=== PATIENT | male | born 1950 | race Caucasian/White ===

== ENCOUNTER → 2016-10-06 | Outpatient (CLI) | payer MEDICARE, BC ==
[2016-10-06 18:36] LABS: Basophils # (A) 0.1 k/uL (0-0.2); Basophils % (A) 1 %; CH 30.9; CHCM 33.7; Eosinophils # (A) 0.2 k/uL (0-0.7); Eosinophils % (A) 2 %; HCT 43.1 % (39.0-53.0); HDW 2.74; HGB 14.5 gm/dL (13.0-17.5); Luc # (Auto) 0.14; Luc % (Auto) 1; Lymphocytes # (A) 1.9 k/uL (1.0-4.8); Lymphocytes % (A) 19 %; MCH 31.1 pg (25.0-35.0); MCHC 33.8 g/dL (31.0-37.0); MCV 92.2 fL (80.0-100.0); Mean Platelet Volume 8.1; Monocytes # (A) 0.4 k/uL (0-1.0); Monocytes % (A) 4 %; Neutrophils # (A) 7.1 k/uL (1.3-7.7); Neutrophils % (A) 73 %; RBC 4.67 m/uL (4.30-5.90); RDW 14.3 % (11.5-15.5); WBC 9.7 k/uL (3.8-10.6); WBC (Perox) 9.97
[2016-10-06 19:13] LABS: ALT 30 U/L (21-72); AST 20 U/L (17-59); Alkaline Phosphatase 72 U/L (38-126); Anion Gap 11 mmol/L; Blood Urea Nitrogen 21 mg/dL (9-20); Calcium 8.8 mg/dL (8.4-10.2); Carbon Dioxide 23 mmol/L (22-30); Chloride 108 mmol/L (98-107); Cholesterol 133 mg/dL (<200); Glucose 95 mg/dL (74-99); HDL Cholesterol 36 mg/dL (40-60); Non-African American GFR(MDRD) >60 (>60 ml/min/1.73 sqM); Potassium 4.5 mmol/L (3.5-5.1); Sodium 142 mmol/L (137-145); Total Bilirubin 0.5 mg/dL (0.2-1.3); Total Protein 6.5 g/dL (6.3-8.2); Uric Acid 7.5 mg/dL (3.5-8.5)
== END | disposition home or self-care (01) ==
LOC: MMGSC 08:10
PROVIDERS: ATTEND Family Medicine
DX: I25.10 Atherosclerotic heart disease of native coronary artery without angina pectoris (principal); I10 Essential (primary) hypertension; E78.5 Hyperlipidemia, unspecified; M10.9 Gout, unspecified
CPT/HCPCS: 36415; 80053; 80061; 84439; 84443; 84550; 85025

== ENCOUNTER → 2017-10-28 | Outpatient (CLI) | payer MEDICARE, BC ==
--- NOTE | 2017-10-28 16:45 | CONS ---
CONSULTATION REASON FOR CONSULTATION: Sleep apnea. CHIEF COMPLAINT: Snoring. This 67-year-old male patient is coming in accompanied by his because of loud snoring and occasional apneas as witnessed by his . His is complaining of these symptoms, and she is unable to sleep next to him; she prefers to move to another bedroom or another room to sleep. The patient goes to bed around 11 p.m., wakes up between 7 and 9 a.m. in the morning. 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 He takes occasional naps during the day. During the day he feels relatively refreshed, although at times while watching TV or reading the newspaper he can easily doze off. No history of any motor vehicle accident because of feeling drowsy or sleep. [place] Score is 9. No recent weight gain or weight loss. No other significant comorbidities at this point in time. PAST MEDICAL HISTORY: 1. Hypertension. 2. Hyperlipidemia. 3. Gout. 4. Coronary artery disease. PAST SURGICAL HISTORY: 1. Cardiac catheterization and angioplasty without stent insertion. 2. Left hip replacement. 3. Total abdominal aortic aneurysm repair back in 2001. 4. Lump removed from the back of the neck. DRUG ALLERGIES: NOT KNOWN. OUTPATIENT MEDICATION LIST: 1. Ramipril. 2. Probenecid. 3. Atenolol. 4. Lovastatin. 5. Aspirin. SOCIAL HISTORY: He is an ex-smoker. Social alcohol drinker. No history of IV drugs. FAMILY HISTORY: Negative for sleep apnea. REVIEW OF SYSTEMS: Twelve-point review of system was done and the positive findings are all mentioned above in the history of present illness. PHYSICAL EXAMINATION: VITALS: BP is 152/81, pulse 89, respirations 16, temperature 98.9, saturation 97% on room air. [place] Score is 9. Height is 5 feet 10 inches. Weight is 235, BMI 33.7. Neck size is 17-1/2 inches. GENERAL APPEARANCE: Calm, comfortable. No acute distress. Head is atraumatic, normocephalic. NECK: Supple. There is no JVD. No goiter or neck mass. Mallampati class IV. LUNGS: Clear to auscultation. HEART: Heart sounds are regular rate and rhythm. Normal S1, S2. No S3, S4. No murmurs. ABDOMEN: Soft, nontender. No organomegaly. EXTREMITIES: No edema. No cyanosis or clubbing. NEUROLOGIC: Alert and oriented x3. There is no focal neurological deficit. IMPRESSION: 1. Loud snoring and questionable apneas; possible obstructive sleep apnea, currently under investigation. 2. Mild hypersomnia with an [place] score of 9. 3. Hypertension. 4. Hyperlipidemia. 5. Gout. 6. Coronary artery disease. PLAN: Proceed with a screening polysomnogram, investigating this patient for obstructive sleep apnea. INDY / KATH: [id number] /
== END | disposition home or self-care (01) ==
LOC: SLEEP 13:45
PROVIDERS: ATTEND Internal Medicine Critical Care Medicine
DX: G47.10 Hypersomnia, unspecified (principal); I10 Essential (primary) hypertension; E78.5 Hyperlipidemia, unspecified; M10.9 Gout, unspecified; I25.10 Atherosclerotic heart disease of native coronary artery without angina pectoris; Z87.891 Personal history of nicotine dependence; Z79.82 Long term (current) use of aspirin; Z79.899 Other long term (current) drug therapy; Z96.642 Presence of left artificial hip joint; Z98.890 Other specified postprocedural states
CPT/HCPCS: 99211

== ENCOUNTER → 2018-03-16 | Outpatient (CLI) | payer MEDICARE, OTHER ==
--- NOTE | 2018-03-16 16:57 | PN ---
PROGRESS NOTE Delroy is a 67-year-old male patient coming in for a compliancy check regarding his IKE treatment. The patient was diagnosed having moderate to severe disease with an AHI of 17 and the patient was given an APAP with minimum of 5, maximum of 12. On today's evaluation, his snoring has completely subsided and the patient's sleep quality has improved. He is waking up refreshed and alert during the day. He has been averaging around 8.3 hours of CPAP use per night. His CPAP use for more than 4 hours is approaching above 90%. His CPAP use over the past 30 days is 29/30. Average CPAP use is around 10.8. Peak is 20 L/minute. AHI while on treatment is down to 1.2. He has no complaints otherwise for now. He is using an AirFit F20 medium-sized full-face mask. REVIEW OF SYSTEMS: Twelve-point review of systems was done. Positive findings were all mentioned above in the history of present illness. PHYSICAL EXAMINATION: BP is 147/75, pulse 50, respiration 16, temperature 98.2. Weight is 242. Saturation is 96% on room air. [place] score is down to 5. GENERAL APPEARANCE: Calm, comfortable. Head is atraumatic normocephalic. NECK: Supple. No JVD. No or neck masses. LUNGS: Clear to auscultation. HEART: Heart sounds are regular rate and rhythm. Normal S1, S2. No S3, S4. No murmurs. ABDOMEN: Soft, nontender. No organomegaly. EXTREMITIES: No edema. No cyanosis or clubbing. NEUROLOGIC: Alert and oriented x3. No focal neurological deficits. PSYCHIATRIC: Negative for anxiety or depression. IMPRESSION: 1. Obstructive sleep apnea, moderate in severity. AHI of 17.4, currently on APAP with successful treatment. 2. Hypersomnia, improved. 3. Snoring, improved. 4. Hypertension. 5. Hyperlipidemia. 6. Gout. 7. Coronary artery disease. PLAN: 1. Continue APAP at the same level of pressure. 2. Trial of an AirFit N20 nose mask will be given to this patient. 3. Encourage weight loss. 4. Implement good sleep hygiene measures. 5. Treatment is successful. The patient is benefitting. 6. Will continue to follow. MMODL / IJN: [id number] /
== END ==
LOC: SLEEP 15:34
PROVIDERS: ATTEND Internal Medicine Critical Care Medicine
DX: G47.33 Obstructive sleep apnea (adult) (pediatric) (principal); I10 Essential (primary) hypertension; E78.5 Hyperlipidemia, unspecified; M10.9 Gout, unspecified; I25.10 Atherosclerotic heart disease of native coronary artery without angina pectoris; Z99.89 Dependence on other enabling machines and devices

== ENCOUNTER → 2018-11-06 | Outpatient (CLI) | payer MEDICARE, OTHER ==
--- NOTE | 2018-11-08 06:58 | PE ---
EXAMINATION TYPE: PET CT fusion skull to thigh DATE OF EXAM: 11/06/2018 COMPARISON: NONE HISTORY: Solitary pulmonary nodule , history of squamous cell skin cancer 2008, abnormal outside lo w-dose lung screening CT. History of tobacco use. TECHNIQUE: Following the intravenous administration of 12.96 mCi of F-18 FDG, whole body images are performed from the skull base to the midthigh. Images are reviewed on the computer in the coronal, a xial, and sagittal planes. Reconstructed rotating images are created on independent workstation and reviewed on the computer. A noncontrast CT is performed in conjunction with the PET scan. SCAN: Initial Scan FINDINGS: SKULL BASE AND NECK: No areas of suspicious hypermetabolic uptake. CHEST, MEDIASTINUM, AND HILAR REGION: Background mild to moderate emphysematous change. There is medi al right upper lobe hypermetabolic nodule measuring 2.9 x 2.7 cm abutting the mediastinum maximum christy ge 85, max SUV is 7.89. No additional areas of suspicious hypermetabolic uptake in either lung. No hy permetabolic adenopathy. ABDOMEN AND PELVIS: No suspicious adrenal masses. No areas of suspicious hypermetabolic uptake. OSSEOUS STRUCTURES: No areas of suspicious hypermetabolic uptake. OTHER CT: Moderate calcified plaque right carotid bulb level. Enlarged main pulmonary artery, CT find ing consistent with underlying pulmonary hypertension. Adjacent ascending aorta measures 4.1 cm in di ameter axial image 100. Coronary artery calcification is present which is noted marked of underlying coronary artery disease. Liver is diffusely low dense consistent with diffuse fatty infiltration. 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 Superior to this t here is a surgical graft noted. There is smaller aneurysm of the left common iliac artery. Metallic hardware from left hip arthroplasty is present. Multilevel spurring in the spine. Disc desic cation and mild to moderate disc space narrowing L5-S1 level. Facet arthropathy mid to lower lumbar s pine. IMPRESSION: Abnormal hypermetabolic uptake makes strong suspicion for medial right upper lobe nodule for malignancy. No adenopathy or metastatic disease is noted. 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 TNM Staging- [id number] AJCC Staging - IA
== END | disposition home or self-care (01) ==
LOC: RADPETMAIN 10:21
PROVIDERS: ATTEND Nurse Practitioner Adult Health
DX: I72.3 Aneurysm of iliac artery (principal); R91.1 Solitary pulmonary nodule
CPT/HCPCS: 78815; A9552

== ENCOUNTER → 2018-12-15 | Outpatient (CLI) | payer MEDICARE | END | disposition home or self-care (01) | LOC: LABPAT 11:10 | PROVIDERS: ATTEND Thoracic Surgery (Cardiothoracic Vascular Surgery) | DX: Z01.812 Encounter for preprocedural laboratory examination (principal); R91.8 Other nonspecific abnormal finding of lung field | CPT/HCPCS: 36415; 80051; 82565; 82947; 84520; 85025; 85610; 85730; 86850; 86900; 86901 ==

== ENCOUNTER 2018-12-21 10:51 | Inpatient (IN) | payer MEDICARE ==
[2018-12-15 12:27] LABS: INR 0.9 (<1.2); Partial Thromboplastin Time 26.1 sec (22.0-30.0); Prothrombin Time 9.8 sec (9.0-12.0)
[2018-12-15 12:28] LABS: Potassium 4.7 mmol/L (3.5-5.1)
[2018-12-15 13:25] LABS: Basophils # (A) 0.1 k/uL (0-0.2); Basophils % (A) 1 %; Eosinophils # (A) 0.2 k/uL (0-0.7); Eosinophils % (A) 2 %; HCT 41.7 % (39.0-53.0); Lymphocytes # (A) 1.8 k/uL (1.0-4.8); Lymphocytes % (A) 23 %; MCH 30.1 pg (25.0-35.0); MCHC 33.7 g/dL (31.0-37.0); MCV 89.3 fL (80.0-100.0); Mean Platelet Volume 6.2; Monocytes # (A) 0.4 k/uL (0-1.0); Monocytes % (A) 6 %; Neutrophils # (A) 5.1 k/uL (1.3-7.7); Neutrophils % (A) 66 %; Platelet Count 201 k/uL (150-450); RBC 4.66 m/uL (4.30-5.90); RDW 14.5 % (11.5-15.5); WBC 7.7 k/uL (3.8-10.6)
[2018-12-17 11:00] VITALS: BMI 31.1
[~2018-12-21 10:51] MED LIST: DEXAMETHASONE SOD PHOSPHATE 10 MG/ML 1 ML VIAL IV ONE; HYDROmorphone 0.5 MG/0.5 ML SYRINGE IVP PRN; LACTATED RINGERS 1,000 ML IV SCH; LIDOCAINE 1% 20 ML VIAL (10MG/ML) FOR IV START INTRADERMA PRN; ONDANSETRON 4 MG/2 ML VIAL IVP ONE; fentaNYL (PF) 50 MCG/ML 2 ML AMP IV PRN
[2018-12-21] MEDS ORDERED: MIDAZOLAM 2 MG/2 ML VIAL IVP ONE (12:26)
[2018-12-21] MEDS ORDERED: fentaNYL (PF) 50 MCG/ML 2 ML AMP IVP ONE (12:27)
[2018-12-21] MEDS ORDERED: PROPOFOL 10 MG/ML 20 ML VIAL IV ONE (13:48)
[2018-12-21] MEDS ORDERED: ePHEDrine SULFATE/0.9% NACL/PF 50 MG/5 ML SYRINGE IV ONE (13:48)
[2018-12-21] MEDS ORDERED: SUCCINYLCHOLINE CHLORIDE VIAL 200 MG/10 ML VIAL IV ONE (13:48)
[2018-12-21] MEDS ORDERED: MIDAZOLAM 2 MG/2 ML VIAL ONE (13:48)
[2018-12-21] MEDS ORDERED: NEOSTIGMINE 1 MG/ML 10 ML VIAL ONE (13:48)
[2018-12-21] MEDS ORDERED: PHENYLEPHRINE-0.9% NACL SYG 1 MG/10 ML SYRINGE ONE (13:48)
[2018-12-21] MEDS ORDERED: LIDOCAINE 1% INJ 10MG/ML (20 ML MDV) ONE (13:48)
[2018-12-21] MEDS ORDERED: fentaNYL (PF) 50 MCG/ML 2 ML AMP ONE (13:48)
[2018-12-21] MEDS ORDERED: ROCURONIUM BROMIDE 10 MG/ML 10 ML VIAL IV ONE (13:48)
[2018-12-21] MEDS ORDERED: GLYCOPYRROLATE 0.2 MG/ML 2 ML VIAL ONE (13:48)
[2018-12-21] MEDS ORDERED: BUPIVACAINE (PF) 0.5% 30 ML VIAL SQ ONE ×2 (14:37→16:44)
[2018-12-21] MEDS ORDERED: LACTATED RINGERS 1,000 ML IV ONE (15:00)
[2018-12-21] MEDS ORDERED: IPRATROPIUM-ALBUTEROL 3 ML NEB IH PRN (17:05)
[2018-12-21] MEDS ORDERED: DEXTROSE 5%-0.45% NACL 1,000 ML IV SCH (17:05)
[2018-12-21] MEDS ORDERED: ONDANSETRON 4 MG/2 ML VIAL IVP PRN (17:05)
--- NOTE | 2018-12-21 17:24 | P.OP ---
Date of Procedure: 12/21/18 Preoperative Diagnosis: lung mass right upper lobe Postoperative Diagnosis: same, adenocarcinoma Procedure(s) Performed: robotic-assisted thoracoscopic right upper lobectomy with mediastinal lymph node dissection Anesthesia: NEHA Surgeon: Amos Corbett Locomotive Operator Helper #1: Fei Palencia Estimated Blood Loss (ml): 50 IV fluids (ml): 1,000 Urine output (ml): 200 Pathology: other (Right upper lobe, lymph node stations R4, R5, level VII, RA, R9, R 10, R 11) Condition: stable Disposition: PACU Indications for Procedure: 68-year-old male with tumor in the right upper lobe consistent with carcinoma by CAT scan and PET criteria without evidence of metastasis Operative Findings: mass in the right upper lobe, fairly extensive hilar and mediastinal lymphadenopathy without gross evidence of tumor involvement. Frozen section of the right upper lobe mass was consistent with primary pulmonary adenocarcinoma in the bronchial margin was negative by frozen section Description of Procedure: patient was brought to the operating room, placed supine on the operating table, anesthetized and intubated with a double-lumen endotracheal tube. Tube was positioned with fiberoptic bronchoscopy and secured. Patient was turned in the left lateral decubitus position and appropriately positioned for robotic lobectomy. The right chest was sterilely prepped and draped. Initial incision was made in the eighth interspace in the anterior axillary line and video thoracoscope was introduced through an 8 mm robotic port. Once confirmation was made that we were in the pleural space CO2 insufflation was begun. A 12 mm ports were placed anterior and posterior to the initialport and a second 8 mm port was placed in the eighth interspace posteriorly. A working port was placed between the 2 most anterior ports at the level of the diaphragm. After exploration of the chest, dissection was begun at the inferior pulmonary ligament. RA lead and R9 lymph nodes were resected and sent for permanent section. Dissection was continued posteriorly to the level of the azygos vein. level VII lymph nodes were resected. Dissection was carried onto the bronchus and the right upper lobe bronchus was dissected out. Lymph nodes between the right upper lobe bronchus and bronchus intermedius were resected and sent as R 11 lymph nodes. Once the right upper lobe bronchus was encircled it was ligated and divided with a single firing of a robotic thick stapler. There was a small branch of the pulmonary artery running to the upper lobe inferiorly and medially which was taken with a single firing of a robotic stapler. We now addressed the anterior portion of the dissection. Superior pulmonary vein branches draining the middle lobe were identified and we encircled this branches draining the upper lobe. We did run into a little bleeding here that was controlled with direct pressure and Surgicel. Once the branches were encircled they were ligated and divided with a single firing of a robotic vascular stapler. Dissection was then carried onto the truncus anterior doses and it was taken in 2 separate firings of robotic stapler. We now came down to the posterior segmental branch of the upper lobe. A portion of the severity been taken but we were able to encircle the entire thing now and ligated and divided with a single firing of the robotic stapler. His completed the hilar dissection. Some more level XI lymph nodes had been resected we also encountered a lymph node along the inferior vena cava anteriorly which was sent as a R5 lymph node. We now dis sected out the R 10 lymph nodes and the R4 lymph nodes. Finally we completed the fissure robotically with multiple firings of robotic blue staplers and once the lobe was completely it was placed in an Endo Catch bag. The robot was now removed from the patient and the working port incision was enlarged. Specimen was brought through the chest in the bag through the working port incision and sent to pathology for frozen section with findings as noted above. Chest was examined for hemostasis and this was felt to be excellent. Chest was irrigated with warm water and just a small amount of air leak from the hilum was noted. Bronchial stump itself was without air leak. Irrigating out the chest lung was fully inflated and a 28-Faroese chest tube was placed posterior apically and secured with an 0 silk's teacher. Incisions were now closed with layers of Vicryl suture. Rib blocks were performed at the level of the incisions posteriorly and patient and dry sterile dressings were applied. Patient was turned supine and extubated and transferred to recovery in stable condition.
[2018-12-21] MEDS ORDERED: HYDROmorphone 1 MG/ML 1 ML SYRINGE IVP ONE ×3 (17:29→18:07)
--- NOTE | 2018-12-21 17:38 | XR ---
EXAMINATION TYPE: XR chest 1V DATE OF EXAM: 12/21/2018 COMPARISON: NONE HISTORY: Postop right upper lobectomy TECHNIQUE: Single frontal view of the chest is obtained. FINDINGS: There is a chest tube with the tip at the right lung apex. No pneumothorax is seen. Heart size is normal. There is no heart failure. Trachea is midline. Lungs appear clear of consolidation. IMPRESSION: Chest tube in good position. No evidence of active cardiopulmonary disease.
[2018-12-21] MEDS: KETOROLAC 30 MG/ML 1 ML VIAL IVP SCH ×2 (18:39→23:20)
[2018-12-21] MEDS: IPRATROPIUM-ALBUTEROL 3 ML NEB IH SCH (19:48)
[2018-12-21] MEDS: ACETAMINOPHEN IV (For NPO) 1,000 MG in EMPTY BAG 1 BAG IVPB SCH (19:51)
[2018-12-21 22:00] LABS: HCT 37.6 % (39.0-53.0); HGB 12.5 gm/dL (13.0-17.5); MCH 30.4 pg (25.0-35.0); MCHC 33.2 g/dL (31.0-37.0); MCV 91.6 fL (80.0-100.0); Platelet Count 174 k/uL (150-450); RDW 14.4 % (11.5-15.5); WBC 11.5 k/uL (3.8-10.6)
[2018-12-21 23:19] LABS: Potassium 5.8 mmol/L (3.5-5.1)
[2018-12-21] MEDS: HEPARIN SODIUM,PORCINE 5,000 UNIT/ML 1 ML VIAL SQ SCH (23:21)
[2018-12-21] MEDS ORDERED: SODIUM POLYSTYRENE SULFONATE 15 GM/60 ML BOTTLE PO STA (23:41)
[2018-12-21] MEDS ORDERED: CALCIUM GLUCONATE 1 GM in SODIUM CHLORIDE 0.9% 100 ML IVPB ONE (23:41)
--- NOTE | 2018-12-22 00:20 | P.CONS ---
History of Present Illness - Reason for Consult Consult date: 12/22/18 - History of Present Illness Patient is a 68-year-old male with a PMH of recently diagnosed lung malignancy, tobacco abuse, gout, coronary artery disease status post [place] x1, hypertension, hyperlipidemia, obstructive sleep apnea (on CPAP) was admitted to the hospital for a scheduled right upper lobectomy which he underwent earlier today uneventfully. The patient was seen on the surgical unit postoperatively. The patient stated surgical site pain with movement movement or coughing. He reported no pain at rest. He further denied any additional complaints. He reported no palpitations, fever, chills, shortness of breath, nausea, vomiting, abdominal pain, or diarrhea. Review of Systems Pertinent positives and negatives as discussed in HPI, a complete review of systems was performed and all other systems are negative. Past Medical History Past Medical History: Cancer, COPD, Hyperlipidemia, Hypertension, Myocardial Infarction (OK), Sleep Apnea/CPAP/BIPAP Additional Past Medical History / Comment(s): spot right upper lung, hx. skin cancer, uses CPAP, gout Last Myocardial Infarction Date:: 1996 History of Any Multi-Drug Resistant Organisms: None Reported Past Surgical History: Heart Catheterization, Joint Replacement Additional Past Surgical History / Comment(s): AAA repair 2002, & then lysis of adhesions, left hip replaced, vasectomy Past Anesthesia/Blood Transfusion Reactions: No Reported Reaction Smoking Status: Former smoker - Past Family History Mother Family Medical History: Cancer, Deep Vein Thrombosis (DVT) Medications and Allergies Home Medications Medication Instructions Recorded Confirmed Type Aspirin 81 mg PO DAILY 12/17/18 12/21/18 History Atenolol [Tenormin] 25 mg PO DAILY 12/17/18 12/17/18 History Probenecid 500 mg PO DAILY 12/17/18 12/17/18 History Ramipril [Altace] 5 mg PO DAILY 12/17/18 12/17/18 History Rosuvastatin [Crestor] 10 mg PO DAILY 12/17/18 12/17/18 History Venlafaxine HCl [Effexor XR] 75 mg PO DAILY 12/17/18 12/17/18 History Allergies Allergy/AdvReac Type Severity Reaction Status Date / Time bee pollen Allergy Anaphylaxis Verified 12/17/18 10:49 Physical Exam Vitals: Vital Signs Temp Pulse Pulse Resp BP BP Pulse Ox 12/21/18 19:59 75 16 12/21/18 19:49 73 16 12/21/18 19:30 98 F 65 18 98/55 98 12/21/18 18:55 98.4 F 64 16 101/56 97 12/21/18 18:00 60 16 120/61 99 12/21/18 17:45 60 14 144/71 100 12/21/18 17:30 56 L 16 127/63 100 12/21/18 17:08 96.9 F L 78 16 180/87 100 12/21/18 12:54 57 L 18 125/70 98 12/21/18 12:15 129/74 12/21/18 11:54 97.9 F 54 L 18 134/65 99 Intake and Output 12/21/18 12/21/18 12/22/18 14:59 22:59 06:59 Intake Total 1050 700 Output Total 570 Balance 1050 130 Intake: IV 1050 700 Output: Chest Tube Drainage 220 Chest Tube Right 220 Urine 150 Estimated Blood Loss 200 Other: Voiding Method Indwelling Catheter Weight 104.326 kg General: non toxic, no distress, appears at stated age, obese Derm: no unusual rashes/lesions no unusual ecchymoses, warm, dry Head: atraumatic, normocephalic, symmetric Eyes: EOMI, no lid lag, anicteric sclera, pupils equal round reactive to light ENT: Nose and ears atraumatic, no thrush, no pharyngeal erythema Neck: No thyromegaly, no cervical lymphadenopathy, trachea midline, supple Mouth: no lip lesion, mucus membranes moist Cardiovascular: S1S2 reg, no murmur, positive posterior tibial pulse bilateral, no edema, capillary refill less than 2 seconds Lungs: Right chest-tube in place, CTA bilateral, no rhonchi, no rales , no accessory muscle use Abdominal: soft, nontender to palpation, no guarding, no appreciable organomegaly, normal bowel sounds Ext: no gross muscle atrophy, muscle strength 5 out of 5 in all 4 extremities grossly, no contractures, Neuro: CN II-XI grossly intact, light touch intact all 4 extremities, finger to nose within normal limits, Psych: Alert, oriented, appropriate affect Results CBC & Chem 7: 12/21/18 18:30 12/21/18 22:42 Labs: Abnormal Lab Results - Last 24 Hours (Table) 12/21/18 12/21/18 Range/Units 18:30 22:42 WBC 11.5 H (3.8-10.6) k/uL RBC 4.10 L (4.30-5.90) m/uL Hgb 12.5 L (13.0-17.5) gm/dL Hct 37.6 L (39.0-53.0) % Potassium 5.8 H (3.5-5.1) mmol/L BUN 23 H (9-20) mg/dL Creatinine 1.57 H (0.66-1.25) mg/dL Glucose 131 H (74-99) mg/dL Calcium 8.0 L (8.4-10.2) mg/dL Assessment and Plan Plan: Hyperkalemia -Will administer Ca-gluconate and give kayexalate -Monitor BMP JUNAID -Monitor BMP -IVFs HTN, HLD, Gout -C/w home meds: Ramipril, Crestor -Hold probenecid in setting of JUNAID CAD -Cardiac monitoring -Cardiology consulted IKE -C/w CPAP Leukocytosis -Likely reactive to stress -Monitor for now S/p R upper lobectomy in setting of recently diagnosed malignancy -Surgery and Pulmonary services following DVT proph -Heparin subq
[2018-12-22] MEDS: SODIUM CHLORIDE 0.9% 1,000 ML IV SCH ×3 (01:23→23:10)
[2018-12-22] MEDS: ACETAMINOPHEN IV (For NPO) 1,000 MG in EMPTY BAG 1 BAG IVPB SCH (01:23)
[2018-12-22] MEDS: KETOROLAC 30 MG/ML 1 ML VIAL IVP SCH (05:23)
[2018-12-22] MEDS: PANTOPRAZOLE 40 MG TABLET PO SCH (06:44)
--- NOTE | 2018-12-22 07:02 | XR ---
EXAMINATION TYPE: XR chest 1V portable DATE OF EXAM: 12/22/2018 COMPARISON: Yesterday HISTORY: Lobectomy TECHNIQUE: Single frontal view of the chest is obtained. FINDINGS: There is right chest tube with the tip at the right lung apex. There is no sign of pneumot horax. Trachea is midline. Heart size is normal. There is no heart failure. There is probably minimal atelectasis left lung base. There are chest leads. IMPRESSION: Inspiration is improved overall compared to exam yesterday. Minimal subsegmental atelect asis left lung base. No pneumothorax.
[2018-12-22 07:19] LABS: Basophils % (A) 0 %; Eosinophils # (A) 0.1 k/uL (0-0.7); Eosinophils % (A) 1 %; HCT 34.8 % (39.0-53.0); HGB 11.5 gm/dL (13.0-17.5); Lymphocytes # (A) 1.4 k/uL (1.0-4.8); Lymphocytes % (A) 21 %; MCH 29.9 pg (25.0-35.0); MCV 90.7 fL (80.0-100.0); Mean Platelet Volume 6.9; Monocytes # (A) 0.3 k/uL (0-1.0); Monocytes % (A) 4 %; Neutrophils # (A) 4.8 k/uL (1.3-7.7); Neutrophils % (A) 71 %; Platelet Count 149 k/uL (150-450); RBC 3.84 m/uL (4.30-5.90); RDW 14.4 % (11.5-15.5); WBC 6.7 k/uL (3.8-10.6)
[2018-12-22 07:36] LABS: Potassium 4.5 mmol/L (3.5-5.1)
[2018-12-22] MEDS ORDERED: LISINOPRIL 20 MG TAB PO SCH (09:00)
[2018-12-22] MEDS: VENLAFAXINE HCL ER 75 MG CAP PO SCH (09:28)
[2018-12-22] MEDS: HEPARIN SODIUM,PORCINE 5,000 UNIT/ML 1 ML VIAL SQ SCH ×3 (09:28→23:11)
[2018-12-22] MEDS: ASPIRIN 81 MG PO SCH (09:28)
[2018-12-22] MEDS: ATORVASTATIN 20 MG TAB PO SCH (09:28)
[2018-12-22] MEDS: traMADol 50 MG TAB PO SCH ×4 (09:28→23:11)
[2018-12-22] MEDS: IPRATROPIUM-ALBUTEROL 3 ML NEB IH SCH ×4 (09:29→19:34)
--- NOTE | 2018-12-22 10:09 | P.PN ---
Subjective Progress Note Date: 12/22/18 Principal diagnosis: Lung mass right upper lobe, with positive uptake on PET. [place] medical history of hypertension, IKE with cpap use, hyperlipidemia, OR, s/p angioplasty, abdominal aortic aneurysm, s/p aorto bi-iliac surgery, gout, former heavy smoker Post op day one robotic-assisted thoracoscopic right upper lobectomy with mediastinal lymph node dissection, pathology pending, frozen section consistent with primary pulmonary adenocarcinoma. Post operative JUNAID unexpected. Patient sitting up in chair with leola hose and SCD's on and does not appear to be in any distress. Patient states pain is controlled with current regimen. Right chest tube to suction with air leak present. Denies shortness of breath. No new concerns. Objective - Vital Signs Vital signs: Vital Signs Temp 98.2 F 12/22/18 03:30 Pulse 58 L 12/22/18 03:30 Resp 18 12/22/18 03:30 BP 102/50 12/22/18 03:30 Pulse Ox 99 12/22/18 03:30 Intake & Output 12/21/18 12/22/18 12/22/18 18:59 06:59 18:59 Intake Total 1750 120 Output Total 350 970 Balance 1400 -970 120 Weight 104.326 kg 97.5 kg Intake: IV 1750 Oral 120 Output: Chest Tube Drainage 520 Chest Tube Right 520 Urine 150 450 Uretheral (Steinberg) 250 Estimated Blood Loss 200 Other: Voiding Method Indwelling Catheter - Constitutional General appearance: Present: cooperative, no acute distress - Respiratory Details: Breathing even an unlabored. Lung sounds coarse throughout right, diminished to left base. Denies sob at rest. Patient SPO2 99% on 2L NC, 97% on RA. IS, cough/deep breathing, and ambulation encouraged. Right chest tube to -20cm H2O suction with air leak present, 600ml sero/sang drainage noted in 24 hours. Cpap at bedside, encouraged night time use. - Cardiovascular Details: Regular rate and rhythm. S1 S2, no murmurs. SB on piece dyeing machine tender HR 55. +2 peripheral pulses, no edema, capillary refill < 2 seconds, extremities warm to touch - Gastrointestinal Gastrointestinal Comment(s): Abdomen soft, non-tender, non-distended. + BS x 4 quadrants. No nausea, eating well. LBM 10 per patient. General gastrointestinal: Present: normal bowel sounds - Integumentary Integumentary: Present: normal - Neurologic Neurologic: Present: CNII-XII intact - Musculoskeletal Musculoskeletal: Present: strength equal bilaterally - Psychiatric Psychiatric: Present: A&O x's 3, appropriate affect, intact judgment & insight - Allied health notes Allied health notes reviewed: nursing - Labs CBC & Chem 7: 12/22/18 06:45 12/22/18 06:45 Labs: Abnormal Lab Results - Last 24 Hours (Table) 12/21/18 12/21/18 12/22/18 Range/Units 18:30 22:42 06:45 WBC 11.5 H (3.8-10.6) k/uL RBC 4.10 L 3.84 L (4.30-5.90) m/uL Hgb 12.5 L 11.5 L (13.0-17.5) gm/dL Hct 37.6 L 34.8 L (39.0-53.0) % Plt Count 149 L (150-450) k/uL Potassium 5.8 H (3.5-5.1) mmol/L BUN 23 H (9-20) mg/dL Creatinine 1.57 H (0.66-1.25) mg/dL Glucose 131 H (74-99) mg/dL Calcium 8.0 L (8.4-10.2) mg/dL 12/22/18 Range/Units 06:45 WBC (3.8-10.6) k/uL RBC (4.30-5.90) m/uL Hgb (13.0-17.5) gm/dL Hct (39.0-53.0) % Plt Count (150-450) k/uL Potassium (3.5-5.1) mmol/L BUN 26 H (9-20) mg/dL Creatinine 1.57 H (0.66-1.25) mg/dL Glucose 121 H (74-99) mg/dL Calcium 8.0 L (8.4-10.2) mg/dL - Imaging and Cardiology Chest x-ray: report reviewed, image reviewed Abdominal x-ray: report reviewed, image reviewed Assessment and Plan Assessment: 1. Right upper lobe mass,s/p robotic assisted right upper lobectomy, pathology pending, frozen section consistent with primary pulmonary adenocarcinoma 2. Post-op JUNAID 3.COPD 4. Previous OR 5. HTN 6. HYperlipidemia 7. IKE/CPAP Plan: 1. Likely will put chest tube to water seal, monitor for resolution of air leak 2. Wean O2 as tolerated, encourage IS use 10 x hour, CDB 3. Monitor daily CXR 4. Bronchodilators/CPAP per pulmonology 5. Ultram ATC/Tylenol PRN pain 6. Encourage ambulation 7. Stop Toradol and Lisinopril, continue IVF 8. Continue DVT/PE prophylaxis 9. Senna-s Time with Patient: Greater than 30
[2018-12-22] MEDS ORDERED: MAGNESIUM HYDROXIDE 2,400 MG/10 ML CUP PO PRN (10:10)
--- NOTE | 2018-12-22 11:41 | P.PN ---
Subjective Progress Note Date: 12/22/18 (delayed charting patient seen at 0930) Principal diagnosis: lung mass Patient is a 68-year-old male with a past medical history of myocardial infarction status post angioplasty, aortic aneurysm status post aortic biiliac surgery, hypertension, dyslipidemia, and prior tobacco abuse who presented for elective right upper lobectomy secondary to mass. Due to the location of the mass it was not amenable for either percutaneous or transtracheal biopsy. He did undergo a preoperative PET scan which showed avid uptake in the right upper lobe. He underwent a robotic-assisted thoracoscopic with right upper lobectomy and mediastinal lymph node dissection on 12/21. Froz en section was consistent with primary pulmonary adenocarcinoma, bronchial margin was negative by frozen section. He tolerated the procedure well and has s right-sided chest tube inplace. Postoperatively he was noted to have a slightly high potassium level at 5.8 and he was given 1 dose of Kayexalate. His creatinine was also elevated to 1.57 from his baseline of 1.21. He was started on IV fluids and his MATTHEW inhibitor was held. Patient seen and examined at bedside. He reports that his pain is controlled unless he takes a deep breath or coughs. He denies any nausea, vomiting, diarrhea, or constipation. Family present at bedside and all questions answered. Objective - Vital Signs Vital signs: Vital Signs Temp 97.5 F L 12/22/18 08:00 Pulse 64 12/22/18 09:41 Resp 20 12/22/18 08:00 BP 106/58 12/22/18 08:00 Pulse Ox 96 12/22/18 08:00 Intake & Output 12/21/18 12/22/18 12/22/18 18:59 06:59 18:59 Intake Total 1750 120 Output Total 350 970 Balance 1400 -970 120 Weight 104.326 kg 97.5 kg Intake: IV 1750 Oral 120 Output: Chest Tube Drainage 520 Chest Tube Right 520 Urine 150 450 Uretheral (Steinberg) 250 Estimated Blood Loss 200 Other: Voiding Method Indwelling Catheter - Exam General: non toxic, no distress, appears at stated age Derm: warm, dry Head: atraumatic, normocephalic, symmetric Eyes: EOMI, no lid lag, anicteric sclera Mouth: no lip lesion, mucus membranes moist Cardiovascular: S1S2 reg, no murmur, positive posterior tibial pulse bilateral, Lungs: decreased breath sounds bilateral, no rhonchi, no rales , no accessory muscle use Abdominal: soft, nontender to palpation, no guarding, no appreciable organomegaly Ext: no gross muscle atrophy, no edema, no contractures Neuro: CN II-XI grossly intact, no focal neuro deficits Psych: Alert, oriented, appropriate affect - Labs CBC & Chem 7: 12/22/18 06:45 12/22/18 06:45 Labs: Abnormal Lab Results - Last 24 Hours (Table) 12/21/18 12/21/18 12/22/18 Range/Units 18:30 22:42 06:45 WBC 11.5 H (3.8-10.6) k/uL RBC 4.10 L 3.84 L (4.30-5.90) m/uL Hgb 12.5 L 11.5 L (13.0-17.5) gm/dL Hct 37.6 L 34.8 L (39.0-53.0) % Plt Count 149 L (150-450) k/uL Potassium 5.8 H (3.5-5.1) mmol/L BUN 23 H (9-20) mg/dL Creatinine 1.57 H (0.66-1.25) mg/dL Glucose 131 H (74-99) mg/dL Calcium 8.0 L (8.4-10.2) mg/dL 12/22/18 Range/Units 06:45 WBC (3.8-10.6) k/uL RBC (4.30-5.90) m/uL Hgb (13.0-17.5) gm/dL Hct (39.0-53.0) % Plt Count (150-450) k/uL Potassium (3.5-5.1) mmol/L BUN 26 H (9-20) mg/dL Creatinine 1.57 H (0.66-1.25) mg/dL Glucose 121 H (74-99) mg/dL Calcium 8.0 L (8.4-10.2) mg/dL Assessment and Plan Assessment: Adenocarcinoma of the lung - s/p Right upper lobectomy with chest tube in place - pain control - pulm hygeine JUNAID, undetermined cause - IVF - Hold ACEI - Avoid additional nephrotoxic agents - follow BP Blood loss anemia, anticipated - no indication for transfusion - follow CBC IKE - has home CPAP and will use HTN currently low normal BP - ACEI on hold - BBon hold HLD - statin Hyperkalemia, resolved DVT prophylaxis: Heparin Discussed with: patient, nursing, uma araya Anticipated discharge: per primary team Anticipated discharge place: home A total of 25 minutes was spent on the care of this complex patient more than 50% of the time was spent in counseling and care coordination.
--- NOTE | 2018-12-22 12:14 | P.CNPUL ---
History of Present Illness Consult date: 12/22/18 Requesting physician: Amos Corbett Reason for consult: lung mass, abnormal CXR/CT Chief complaint: Right upper lobe mass, status post right upper lobectomy History of present illness: This is a 68-year-old white male patient of Dr. Lza Bright, with past medical history of myocardial infarction, and PTCA 20 years ago, abdominal aortic aneurysm repair, hypertension, hyperlipidemia, [place] diabetes mellitus, obstructive sleep apnea on CPAP. Patient has [id number] smoking history, quit smoking 2 years ago. He was seen by his PCP and was scheduled for a routine screening low-dose computed tomography scan in view of his smoking history and was found to have a right upper lobe mass noted medially measuring 2.4 x 2.6 cm that was felt to reflect malignancy. There was extension into the medial pleural surface. A 3 mm pleural-based nodule in the right upper lobe, no left- sided pulmonary nodules were identified, no mediastinal lymphadenopathy, some mild COPD, he was referred to Dr. Matthews/Dr. Perkins for pulmonary evaluation, he underwent outpatient pre-and post-spirometry which revealed an FEV1 value of 101% of predicted with no change post bronchodilator. Patient has no shortness of breath performing his day-to-day activities, no recent weight loss, no hemoptysis, no cough or congestion. Outpatient PET scan on 11/08/2018 showed abnormal hypermetabolic uptake in the medial right upper lobe nodule with max SUV of 7.89, with no additional areas of suspicious hypermetabolic uptake in either lung, no hypermetabolic adenopathy. No evidence of distant metastasis. 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 Patient was referred to cardiothoracic surgery, and on 12/21/2018 patient underwent robotic-assisted thoracoscopic right upper lobectomy with mediastinal lymph node dissection. We're seeing the patient's on selective care unit, on postoperative day one. He is doing well, he is on room air, right-sided chest tube is in place, and is a continuous air leak, however chest x-ray today shows no evidence of pneumothorax, and minimal subsegmental atelectasis at the left lung base. Patient tolerating ambulation, he is pulling 2000 on his incentive spirometer, no specific complaints. Review of Systems All systems: negative Constitutional: Denies chills, Denies fever Eyes: denies blurred vision, denies pain Ears, nose, mouth and throat: Denies headache, Denies sore throat Cardiovascular: Denies chest pain, Denies shortness of breath Respiratory: Reports sleep apnea, Denies cough Gastrointestinal: Denies abdominal pain, Denies diarrhea, Denies nausea, Denies vomiting Musculoskeletal: Denies myalgias Integumentary: Denies pruritus, Denies rash Neurological: Denies numbness, Denies weakness Psychiatric: Denies anxiety, Denies depression Endocrine: Denies fatigue, Denies weight change Past Medical History Past Medical History: Cancer, COPD, Hyperlipidemia, Hypertension, Myocardial Infarction ([place]), Sleep Apnea/CPAP/BIPAP Additional Past Medical History / Comment(s): spot right upper lung, hx. skin cancer, uses CPAP, gout Last Myocardial Infarction Date:: 1996 History of Any Multi-Drug Resistant Organisms: None Reported Past Surgical History: Heart Catheterization, Joint Replacement Additional Past Surgical History / Comment(s): AAA repair 2002, & then lysis of adhesions, left hip replaced, vasectomy Past Anesthesia/Blood Transfusion Reactions: No Reported Reaction Smoking Status: Former smoker - Past Family History Mother Family Medical History: Cancer, Deep Vein Thrombosis (DVT) Medications and Allergies Home Medications Medication Instructions Recorded Confirmed Type Aspirin 81 mg PO DAILY 12/17/18 12/21/18 History Atenolol [Tenormin] 25 mg PO DAILY 12/17/18 12/17/18 History Probenecid 500 mg PO DAILY 12/17/18 12/17/18 History Ramipril [Altace] 5 mg PO DAILY 12/17/18 12/17/18 History Rosuvastatin [Crestor] 10 mg PO DAILY 12/17/18 12/17/18 History Venlafaxine HCl [Effexor XR] 75 mg PO DAILY 12/17/18 12/17/18 History Allergies Allergy/AdvReac Type Severity Reaction Status Date / Time bee pollen Allergy Anaphylaxis Verified 12/17/18 10:49 Physical Exam Vitals: Vital Signs Temp Pulse Pulse Resp BP BP Pulse Ox 12/22/18 09:41 64 12/22/18 09:29 60 12/22/18 08:00 97.5 F L 57 L 20 106/58 96 12/22/18 03:30 98.2 F 58 L 18 102/50 99 12/21/18 23:30 98.3 F 64 18 90/55 99 12/21/18 19:59 75 16 12/21/18 19:49 73 16 12/21/18 19:30 98 F 65 18 98/55 98 12/21/18 18:55 98.4 F 64 16 101/56 97 12/21/18 18:00 60 16 120/61 99 12/21/18 17:45 60 14 144/71 100 12/21/18 17:30 56 L 16 127/63 100 12/21/18 17:08 96.9 F L 78 16 180/87 100 12/21/18 12:54 57 L 18 125/70 98 12/21/18 12:15 129/74 Intake and Output 12/21/18 12/22/18 12/22/18 22:59 06:59 14:59 Intake Total 700 120 Output Total 720 600 Balance -20 -600 120 Intake: IV 700 Oral 120 Output: Chest Tube Drainage 220 300 Chest Tube Right 220 300 Urine 300 300 Uretheral (Steinberg) 150 100 Estimated Blood Loss 200 Other: Voiding Method Indwelling Catheter Indwelling Catheter Weight 97.5 kg GENERAL EXAM: Alert, pleasant, 68-year-old white male in room air comfortable in no apparent distress. HEAD: Normocephalic/atraumatic. EYES: Normal reaction of pupils, equal size. Conjunctiva pink, sclera white. NOSE: Clear with pink turbinates. THROAT: No erythema or exudates. NECK: No masses, no JVD, no thyroid enlargement, no adenopathy. CHEST: No chest wall deformity. Symmetrical expansion. Right-sided chest tube is in place, and there is a continuous air leak, there is small amount of serosanguineous output in the Pleur-evac. LUNGS: Equal air entry with diminished breath sounds at the bases, with coarse crackles, but no wheeze, rhonchi or dullness. CVS: Regular rate and rhythm, normal S1 and S2, no gallops, no murmurs, no rubs ABDOMEN: Soft, nontender. No hepatosplenomegaly, normal bowel sounds, no guarding or rigidity. EXTREMITIES: No clubbing, no edema, no cyanosis, 2+ pulses and upper and lower extremities. MUSCULOSKELETAL: Muscle strength and tone normal. SPINE: No scoliosis or deformity SKIN: No rashes CENTRAL NERVOUS SYSTEM: Alert and oriented -3. No focal deficits, tone is normal in all 4 extremities. PSYCHIATRIC: Alert and oriented -3. Appropriate affect. Intact judgment and insight. Results - Laboratory Findings CBC and BMP: 12/22/18 06:45 12/22/18 06:45 PT/INR, D-dimer PT 9.8 sec (9.0-12.0) 12/15/18 11:57 INR 0.9 (<1.2) 12/15/18 11:57 Abnormal lab findings: Abnormal Labs 12/21/18 12/21/18 12/22/18 18:30 22:42 06:45 WBC 11.5 H RBC 4.10 L 3.84 L Hgb 12.5 L 11.5 L Hct 37.6 L 34.8 L Plt Count 149 L Potassium 5.8 H BUN 23 H Creatinine 1.57 H Glucose 131 H Calcium 8.0 L 12/22/18 06:45 WBC RBC Hgb Hct Plt Count Potassium BUN 26 H Creatinine 1.57 H Glucose 121 H Calcium 8.0 L - Diagnostic Findings Chest x-ray: report reviewed, image reviewed Assessment and Plan Plan: Assessment: #1. Right upper lobe mass, with hypermetabolic uptake on the PET scan, and no evidence of metastasis status post thoracoscopic robotic-assisted right upper lobectomy, postoperative day 1. Frozen section was consistent with primary pulmonary adenocarcinoma, and bronchial margin was negative by frozen section #2. Acute kidney injury, MATTHEW inhibitor is on hold #3. Mild hyperkalemia, improved #4. Former heavy tobacco smoker, [id number] smoking history, in remission for last 2 years #5. History of coronary artery disease, status post PTCA and previous history of myocardial infarction #6. Hypertensive disorder #7. Hyperlipidemia #8. Gout #9. Aortic aneurysm status post repair Plan: Continue deep breathing and coughing, pain is controlled, patient is tolerating ambulation, today's chest x-ray has been reviewed, showing some atelectasis at the left base, but no pneumothorax, his chest tube has been placed to waterseal. We'll continue to follow, his right-sided chest tube still has a air leak. Otherwise patient is doing well. I performed a history & physical examination of the patient and discussed their management with my nurse practitioner, Dara Escalante. I reviewed the nurse practitioner's note and agree with the documented findings and plan of care. Lung sounds are positive for diminished breath sounds, a few scattered rales. The findings and the impression was discussed with the patient. I attest to the documentation by the nurse practitioner. Time with Patient: Greater than 30
[2018-12-22] MEDS ORDERED: HYDROmorphone 0.5 MG/0.5 ML SYRINGE IVP STA (15:07)
[2018-12-22] MEDS: ACETAMINOPHEN TAB 500 MG TAB PO PRN (15:31)
--- NOTE | 2018-12-22 15:34 | P.PN ---
Subjective Progress Note Date: 12/22/18 This is a pleasant 68-year-old gentleman who follows regularly with Dr. Joseph in the office. Patient underwent a robotic-assisted thorascopic right upper lobectomy with mediastinal lymph node dissection by Dr. Corbett yesterday. She was evaluated preoperatively by Dr. Joseph, he underwent an MPI that showed a fixed inferior wall defect consistent with his known prior inferior wall myocardial infarction with no evidence of stress-induced ischemia. His level of activity had remained stable without any changes. Patient does have documented history of hypertension, hyperlipidemia, peripheral vascular disease, COPD, nicotine dependence, prior PTCA of the RCA in 1994. Patient overall is doing well, right-sided chest tubes in place, there is a continuous air leak, however the chest x-ray did not reveal any evidence of a pneumothorax. There is a minimal subsegmental atelectasis in the left lung base. He is tolerating ambulation, reaching 2000 on his incentive spirometer. Blood press ure 110/60 with a heart rate in the 60s, 90% on room air. White blood cell count 6.7, hemoglobin 11.5, platelet count 149. Sodium 140, potassium 4.5, BUN 26, creatinine 1.5. Objective - Vital Signs Vital signs: Vital Signs Temp 97.5 F L 12/22/18 08:00 Pulse 61 12/22/18 12:00 Resp 18 12/22/18 12:00 BP 109/61 12/22/18 12:00 Pulse Ox 98 12/22/18 12:00 Intake & Output 12/21/18 12/22/18 12/22/18 18:59 06:59 18:59 Intake Total 1750 360 Output Total 350 970 207 Balance 1400 -970 153 Weight 104.326 kg 97.5 kg Intake: IV 1750 Oral 360 Output: Chest Tube Drainage 520 Chest Tube Right 520 Urine 150 450 Uretheral (Steinberg) 250 Post Void Residual 207 Estimated Blood Loss 200 Other: Voiding Method Indwelling Catheter # Voids 0 - Exam GENERAL EXAM: Alert, pleasant, 68-year-old white male in room air comfortable in no apparent distress. HEAD: Normocephalic/atraumatic. EYES: Normal reaction of pupils, equal size. Conjunctiva pink, sclera white. NOSE: Clear with pink turbinates. THROAT: No erythema or exudates. NECK: No masses, no JVD, no thyroid enlargement, no adenopathy. CHEST: No chest wall deformity. Symmetrical expansion. Right-sided chest tube is in place, and there is a continuous air leak, there is small amount of serosanguineous output in the Pleur-evac. LUNGS: Equal air entry with diminished breath sounds at the bases, with coarse crackles, but no wheeze, rhonchi or dullness. CVS: Regular rate and rhythm, normal S1 and S2, no gallops, no murmurs, no rubs ABDOMEN: Soft, nontender. No hepatosplenomegaly, normal bowel sounds, no guarding or rigidity. EXTREMITIES: No clubbing, no edema, no cyanosis, 2+ pulses and upper and lower extremities. MUSCULOSKELETAL: Muscle strength and tone normal. SPINE: No scoliosis or deformity SKIN: No rashes CENTRAL NERVOUS SYSTEM: Alert and oriented -3. No focal deficits, tone is normal in all 4 extremities. PSYCHIATRIC: Alert and oriented -3. Appropriate affect. Intact judgment and insight. - Labs CBC & Chem 7: 12/22/18 06:45 12/22/18 06:45 Labs: Abnormal Lab Results - Last 24 Hours (Table) 12/21/18 12/21/18 12/22/18 Range/Units 18:30 22:42 06:45 WBC 11.5 H (3.8-10.6) k/uL RBC 4.10 L 3.84 L (4.30-5.90) m/uL Hgb 12.5 L 11.5 L (13.0-17.5) gm/dL Hct 37.6 L 34.8 L (39.0-53.0) % Plt Count 149 L (150-450) k/uL Potassium 5.8 H (3.5-5.1) mmol/L BUN 23 H (9-20) mg/dL Creatinine 1.57 H (0.66-1.25) mg/dL Glucose 131 H (74-99) mg/dL Calcium 8.0 L (8.4-10.2) mg/dL 12/22/18 Range/Units 06:45 WBC (3.8-10.6) k/uL RBC (4.30-5.90) m/uL Hgb (13.0-17.5) gm/dL Hct (39.0-53.0) % Plt Count (150-450) k/uL Potassium (3.5-5.1) mmol/L BUN 26 H (9-20) mg/dL Creatinine 1.57 H (0.66-1.25) mg/dL Glucose 121 H (74-99) mg/dL Calcium 8.0 L (8.4-10.2) mg/dL Assessment and Plan Plan: Assessment and Plan: #1. Right upper lobe mass, with hypermetabolic uptake on the PET scan, and no evidence of metastasis status post thoracoscopic robotic-assisted right upper lobectomy, postoperative day 1. Frozen section was consistent with primary pulmonary adenocarcinoma, and bronchial margin was negative by frozen section #2. Acute kidney injury, MATTHEW inhibitor is on hold #3. Mild hyperkalemia, improved #4. Former heavy tobacco smoker, [id number] smoking history, in remission for last 2 years #5. History of coronary artery disease, status post PTCA and previous history of myocardial infarction #6. Hypertensive disorder #7. Hyperlipidemia #8. Gout #9. Aortic aneurysm status post repair Plan: From cardiology's perspective, we will recommend to continue this patient on his current medications. He MATTHEW inhibitor initially was held because of abnormal renal function. We will start a small dose of Altace 2.5mg PO BID. DNP note has been reviewed, I agree with a documented findings and plan of care. Patient was seen and examined.
[2018-12-22] MEDS: SENNOSIDES-DOCUSATE SODIUM 1 EACH TAB PO SCH (20:09)
[2018-12-23] MEDS: traMADol 50 MG TAB PO SCH ×4 (06:04→23:44)
[2018-12-23] MEDS: SODIUM CHLORIDE 0.9% 1,000 ML IV SCH (06:04)
[2018-12-23] MEDS: PANTOPRAZOLE 40 MG TABLET PO SCH (06:04)
[2018-12-23 06:44] LABS: Basophils % (A) 1 %; Eosinophils # (A) 0.1 k/uL (0-0.7); Eosinophils % (A) 2 %; HCT 31.6 % (39.0-53.0); HGB 10.6 gm/dL (13.0-17.5); Lymphocytes # (A) 0.9 k/uL (1.0-4.8); Lymphocytes % (A) 17 %; MCHC 33.6 g/dL (31.0-37.0); MCV 89.3 fL (80.0-100.0); Mean Platelet Volume 6.5; Monocytes # (A) 0.3 k/uL (0-1.0); Monocytes % (A) 5 %; Neutrophils # (A) 3.8 k/uL (1.3-7.7); Neutrophils % (A) 74 %; Platelet Count 134 k/uL (150-450); RBC 3.53 m/uL (4.30-5.90); RDW 14.5 % (11.5-15.5); WBC 5.2 k/uL (3.8-10.6)
[2018-12-23 06:52] LABS: Albumin 3.1 g/dL (3.5-5.0); Calcium 7.8 mg/dL (8.4-10.2); Potassium 4.4 mmol/L (3.5-5.1); Total Bilirubin 0.5 mg/dL (0.2-1.3); Total Protein 5.6 g/dL (6.3-8.2)
--- NOTE | 2018-12-23 07:16 | XR ---
EXAMINATION TYPE: XR chest 2V DATE OF EXAM: 12/23/2018 COMPARISON: 12/22/2018 HISTORY: post lobectomy TECHNIQUE: Frontal and lateral views of the chest are obtained. FINDINGS: Postoperative changes right lung of the partial lobe ectomy. Right-sided chest tube unchanged in posi tion. Right apical pneumothorax also unchanged estimated at 10%. Heart size is stable. Mediastinal structures are stable and grossly unremarkable. No evidence for hilar prominence. Degenerative changes dorsal spine. IMPRESSION: 1. Stable right apical pneumothorax.
[2018-12-23] MEDS: IPRATROPIUM-ALBUTEROL 3 ML NEB IH SCH ×4 (07:48→19:51)
--- NOTE | 2018-12-23 09:58 | P.PN ---
Subjective Progress Note Date: 12/23/18 Principal diagnosis: Lung mass right upper lobe, with positive uptake on PET. Previous medical history of heavy tobacco dependence, obstructive sleep apnea with CPAP use, coronary artery disease and myocardial infarction status post stenting, hypertension, hyperlipidemia, abdominal aortic aneurysm status post aorto bi- iliac surgery, gout POD #2 robotic-assisted thoracoscopic right upper lobectomy with mediastinal lymph node dissection, pathology pending, frozen section consistent with primary pulmonary adenocarcinoma. Post operative acute kidney injury, unexpected. The patient is currently sitting up in bed in no acute distress. States pain is controlled with current medication regimen. Denies shortness of breath. Has been ambulatory in the hallway. Reports he slept much better last night with home CPAP at his bedside. Chest tube remains in place, was placed to waterseal yesterday, intermittent air leak continues with heavy coughing. No new concerns. Objective - Vital Signs Vital signs: Vital Signs Temp 98.1 F 12/23/18 07:56 Pulse 80 12/23/18 08:29 Resp 16 12/23/18 08:29 BP 152/55 12/23/18 07:56 Pulse Ox 93 L 12/23/18 07:56 Intake & Output 12/22/18 12/23/18 12/23/18 18:59 06:59 18:59 Intake Total 360 222 Output Total 207 250 Balance 153 -250 222 Weight 107.4 kg Intake: Oral 360 222 Output: Chest Tube Drainage 250 Chest Tube Right 250 Post Void Residual 207 Other: Voiding Method Urinal Toilet # Voids 1 - Constitutional General appearance: Present: cooperative, no acute distress, obese - Respiratory Details: Respirations even, nonlabored. Currently on room air with oxygen saturation 94%. Able to achieve 2000 mL on his incentive spirometry. Strong cough. Right pleural chest tube remains to waterseal, 250 mL serous and was drainage overnight, 350 mL in the last 24 hours, intermittent air leak present with a strong forceful coughing. - Cardiovascular Details: S1, S2 present. Regular rate and rhythm, sinus rhythm on telemetry. Palpable peripheral pulses bilaterally. No edema present. No calf pain or tenderness noted. SCDs present. - Gastrointestinal Gastrointestinal Comment(s): Abdomen soft, nontender, nondistended. Active bowel sounds present 4 quadrants. Tolerating diet. Positive flatus, negative bowel movement. - Genitourinary Genitourinary Comment(s): Continues to void clear, yellow urine. - Integumentary Integumentary Comment(s): Skin is warm and dry with evidence of good perfusion. - Neurologic Neurologic: Present: CNII-XII intact - Musculoskeletal Musculoskeletal: Present: gait normal, strength equal bilaterally - Psychiatric Psychiatric: Present: A&O x's 3, appropriate affect, intact judgment & insight - Allied health notes Allied health notes reviewed: nursing - Labs CBC & Chem 7: 12/23/18 05:57 12/23/18 05:57 Labs: Abnormal Lab Results - Last 24 Hours (Table) 12/23/18 12/23/18 Range/Units 05:57 05:57 RBC 3.53 L (4.30-5.90) m/uL Hgb 10.6 L (13.0-17.5) gm/dL Hct 31.6 L (39.0-53.0) % Plt Count 134 L (150-450) k/uL Lymphocytes # 0.9 L (1.0-4.8) k/uL Sodium 136 L (137-145) mmol/L Glucose 132 H (74-99) mg/dL Calcium 7.8 L (8.4-10.2) mg/dL Total Protein 5.6 L (6.3-8.2) g/dL Albumin 3.1 L (3.5-5.0) g/dL - Imaging and Cardiology Chest x-ray: report reviewed, image reviewed Assessment and Plan Assessment: 1. Right upper lobe mass with positive uptake on PET, status post robotic assisted right upper lobectomy, pathology pending, frozen section consistent with primary pulmonary adenocarcinoma 2. Previous heavy tobacco dependence 3. Obstructive sleep apnea with home CPAP use 4. Coronary artery disease with previous myocardial infarction status post stenting 5. Hypertension 6. Hyperlipidemia 7. Previous abdominal aortic aneurysm status post aortobiiliac surgery 8. Postoperative acute kidney injury Plan: 1. Continue right chest tube to water seal, monitor for resolution of air leak 2. Encourage incentive spirometry use 10 x hour 3. Monitor daily chest x-rays 4. Bronchodilators/CPAP per pulmonology 5. Continue current pain medication regimen 6. Increase activity, continue to ambulate in hallway 8. GI/DVT prophylaxis 9. More recommendations to follow Time with Patient: Greater than 30
[2018-12-23] MEDS: VENLAFAXINE HCL ER 75 MG CAP PO SCH (10:26)
[2018-12-23] MEDS: ASPIRIN 81 MG PO SCH (10:26)
[2018-12-23] MEDS: ATORVASTATIN 20 MG TAB PO SCH (10:26)
[2018-12-23] MEDS: LISINOPRIL 10 MG TAB PO SCH (10:26)
[2018-12-23] MEDS: ACETAMINOPHEN TAB 500 MG TAB PO PRN (10:26)
[2018-12-23] MEDS: HEPARIN SODIUM,PORCINE 5,000 UNIT/ML 1 ML VIAL SQ SCH ×3 (10:26→23:42)
--- NOTE | 2018-12-23 12:24 | P.PN ---
Subjective Progress Note Date: 12/23/18 Principal diagnosis: Right upper lobe mass, status post right upper lobectomy This is a 68-year-old white male patient of Dr. Laz Bright, with past medical history of myocardial infarction, and PTCA 20 years ago, abdominal aortic aneurysm repair, hypertension, hyperlipidemia, [place] diabetes mellitus, obstructive sleep apnea on CPAP. Patient has [id number] smoking history, quit smoking 2 years ago. He was seen by his PCP and was scheduled for a routine screening low-dose computed tomography scan in view of his smoking history and was found to have a right upper lobe mass noted medially measuring 2.4 x 2.6 cm that was felt to reflect malignancy. There was extension into the medial pleural surface. A 3 mm pleural-based nodule in the right upper lobe, no left-sided pulmonary nodules were identified, no mediastinal lymphadenopathy, some mild COPD, he was referred to Dr. Matthews/Dr. Perkins for pulmonary evaluation, he underwent outpatient pre-and post-spirometry which revealed an FEV1 value of 101% of predicted with no change post bronchodilator. Patient has no shortness of breath performing his day-to-day activities, no recent weight loss, no hemoptysis, no cough or congestion. Outpatient PET scan on 11/08/2018 showed abnormal hypermetabolic uptake in the medial right upper lobe nodule with max SUV of 7.89, with no additional areas of suspicious hypermetabolic uptake in either lung, no hypermetabolic adenopathy. No evidence of distant metastasis. 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 Patient was referred to cardiothoracic surgery, and on 12/21/2018 patient underwent robotic-assisted thoracoscopic right upper lobectomy with mediastinal lymph node dissection. We're seeing the patient's on selective care unit, on postoperative day one. He is doing well, he is on room air, right-sided chest t ube is in place, and is a continuous air leak, however chest x-ray today shows no evidence of pneumothorax, and minimal subsegmental atelectasis at the left lung base. Patient tolerating ambulation, he is pulling 2000 on his incentive spirometer, no specific complaints. On 12/23/2018 patient seen in follow-up on selective care unit, he is awake and alert, in no acute distress, he is resting comfortably in bed, he did wear his home CPAP unit last night, quite compliant with it, currently room air pulse ox is 94%, he is afebrile, hemodynamically stable, his pain is reasonably controlled, lung surgery of some crackles over right lower base, no rhonchi, no wheezing, he is working on incentive spirometer, he is achieving over 2000 ML on the today, right-sided chest tube is in place, to water seal, and there is intermittent air leak noted with positioning. Patient has been ambulating, tole rating it well, today's lab work has been reviewed, fairly unremarkable, hemoglobin is 10.6, and white blood cell count is 5.2, sodium is 136, the rest of the electrolytes and renal profile were within normal limits. His chest x- ray has been reviewed showing stable right apical pneumothorax estimated to be at 10%. Objective - Vital Signs Vital signs: Vital Signs Temp 97 F L 12/23/18 11:52 Pulse 76 12/23/18 11:52 Resp 16 12/23/18 11:52 BP 128/71 12/23/18 11:52 Pulse Ox 94 L 12/23/18 11:52 Intake & Output 12/22/18 12/23/18 12/23/18 18:59 06:59 18:59 Intake Total 360 522 Output Total 207 250 Balance 153 -250 522 Weight 107.4 kg Intake: Intake, IV Titration 300 Amount Sodium Chloride 0.9% 1, 300 000 ml @ 100 mls/hr IV . Q10H [facility] Rx#:[id number] Oral 360 222 Output: Chest Tube Drainage 250 Chest Tube Right 250 Post Void Residual 207 Other: Voiding Method Urinal Toilet # Voids 1 2 - Exam GENERAL EXAM: Alert, pleasant, 68-year-old white male in room air comfortable in no apparent distress. HEAD: Normocephalic/atraumatic. EYES: Normal reaction of pupils, equal size. Conjunctiva pink, sclera white. NOSE: Clear with pink turbinates. THROAT: No erythema or exudates. NECK: No masses, no JVD, no thyroid enlargement, no adenopathy. CHEST: No chest wall deformity. Symmetrical expansion. Right-sided chest tube is in place, and there is a continuous air leak, there is small amount of serosanguineous output in the Pleur-evac. LUNGS: Equal air entry with diminished breath sounds at the bases, with coarse crackles, but no wheeze, rhonchi or dullness. CVS: Regular rate and rhythm, normal S1 and S2, no gallops, no murmurs, no rubs ABDOMEN: Soft, nontender. No hepatosplenomegaly, normal bowel sounds, no guarding or rigidity. EXTREMITIES: No clubbing, no edema, no cyanosis, 2+ pulses and upper and lower extremities. MUSCULOSKELETAL: Muscle strength and tone normal. SPINE: No scoliosis or deformity SKIN: No rashes CENTRAL NERVOUS SYSTEM: Alert and oriented -3. No focal deficits, tone is normal in all 4 extremities. PSYCHIATRIC: Alert and oriented -3. Appropriate affect. Intact judgment and insight. - Labs CBC & Chem 7: 12/23/18 05:57 12/23/18 05:57 Labs: Abnormal Lab Results - Last 24 Hours (Table) 12/23/18 12/23/18 Range/Units 05:57 05:57 RBC 3.53 L (4.30-5.90) m/uL Hgb 10.6 L (13.0-17.5) gm/dL Hct 31.6 L (39.0-53.0) % Plt Count 134 L (150-450) k/uL Lymphocytes # 0.9 L (1.0-4.8) k/uL Sodium 136 L (137-145) mmol/L Glucose 132 H (74-99) mg/dL Calcium 7.8 L (8.4-10.2) mg/dL Total Protein 5.6 L (6.3-8.2) g/dL Albumin 3.1 L (3.5-5.0) g/dL Assessment and Plan Plan: Assessment: #1. Right upper lobe mass, with hypermetabolic uptake on the PET scan, and no evidence of metastasis status post thoracoscopic robotic-assisted right upper lobectomy, postoperative day 2. Frozen section was consistent with primary pulmonary adenocarcinoma, and bronchial margin was negative by frozen section #2. Acute kidney injury, MATTHEW inhibitor is on hold #3. Mild hyperkalemia, improved #4. Former heavy tobacco smoker, [id number] smoking history, in remission for last 2 years #5. History of coronary artery disease, status post PTCA and previous history of myocardial infarction #6. Hypertensive disorder #7. Hyperlipidemia #8. Gout #9. Aortic aneurysm status post repair Plan: Patient is doing well, continue cursing deep breathing and coughing, today's chest x-ray shows small right apical pneumothorax, right-sided chest tube remains to waterseal, with an intermittent air leak, no specific complaints, patient has been tolerating ablation, he is working on incentive spirometer, biopsy results are pending, but frozen sections were consistent with primary pulmonary adenocarcinoma, with bronchial margins negative but frozen section. Continue nebulized bronchodilators, maintain pain control. We'll continue to follow. I performed a history & physical examination of the patient and discussed their management with my nurse practitioner, Dara Escalante. I reviewed the nurse practitioner's note and agree with the documented findings and plan of care. Lung sounds are positive for diminished breath sounds, a few scattered rales. The findings and the impression was discussed with the patient. I attest to the documentation by the nurse practitioner. Time with Patient: Less than 30
--- NOTE | 2018-12-23 13:37 | P.PN ---
Subjective Progress Note Date: 12/23/18 (delayed charting seen at 1215) Principal diagnosis: lung mass Patient is a 68-year-old male with a past medical history of myocardial infarction status post angioplasty, aortic aneurysm status post aortic biiliac surgery, hypertension, dyslipidemia, and prior tobacco abuse who presented for elective right upper lobectomy secondary to mass. Due to the location of the mass it was not amenable for either percutaneous or transtracheal biopsy. He did undergo a preoperative PET scan which showed avid uptake in the right upper lobe. He underwent a robotic-assisted thoracoscopic with right upper lobectomy and mediastinal lymph node dissection on 12/21. Frozen section was consistent with primary pulmonary adenocarcinoma, bronchial margin was negative by frozen section. He tolerated the procedure well and has s right-sided chest tube inplace. Postoperatively he was noted to have a slightly high potassium level at 5.8 and he was given 1 dose of Kayexalate. His creatinine was also elevated to 1.57 from his baseline of 1.21. He was started on IV fluids and his MATTHEW inhibitor was held. Renal function recovered by 12/23. Patient seen and examined at bedside. Slept much better last night, pain controlled, no nausea, no vomiting, no diarrhea. Still no BM. Pain worse with deep inspiration better with rest. Objective - Vital Signs Vital signs: Vital Signs Temp 97 F L 12/23/18 11:52 Pulse 76 12/23/18 11:52 Resp 16 12/23/18 11:52 BP 128/71 12/23/18 11:52 Pulse Ox 94 L 12/23/18 11:52 Intake & Output 12/22/18 12/23/18 12/23/18 18:59 06:59 18:59 Intake Total 360 744 Output Total 207 250 Balance 153 -250 744 Weight 107.4 kg Intake: Intake, IV Titration 300 Amount Sodium Chloride 0.9% 1, 300 000 ml @ 100 mls/hr IV . Q10H [facility] Rx#:[id number] Oral 360 444 Output: Chest Tube Drainage 250 Chest Tube Right 250 Post Void Residual 207 Other: Voiding Method Urinal Toilet # Voids 1 2 - Exam General: non toxic, no distress, appears at stated age Derm: warm, dry Head: atraumatic, normocephalic, symmetric Eyes: EOMI, no lid lag, anicteric sclera Mouth: no lip lesion, mucus membranes moist Cardiovascular: S1S2 reg, no murmur, positive posterior tibial pulse bilateral, Lungs: decreased breath sounds bilateral, no rhonchi, no rales , no accessory muscle use Abdominal: soft, nontender to palpation, no guarding, no appreciable orga nomegaly Ext: no gross muscle atrophy, no edema, no contractures Neuro: CN II-XI grossly intact, no focal neuro deficits Psych: Alert, oriented, appropriate affect - Labs CBC & Chem 7: 12/23/18 05:57 12/23/18 05:57 Labs: Abnormal Lab Results - Last 24 Hours (Table) 12/23/18 12/23/18 Range/Units 05:57 05:57 RBC 3.53 L (4.30-5.90) m/uL Hgb 10.6 L (13.0-17.5) gm/dL Hct 31.6 L (39.0-53.0) % Plt Count 134 L (150-450) k/uL Lymphocytes # 0.9 L (1.0-4.8) k/uL Sodium 136 L (137-145) mmol/L Glucose 132 H (74-99) mg/dL Calcium 7.8 L (8.4-10.2) mg/dL Total Protein 5.6 L (6.3-8.2) g/dL Albumin 3.1 L (3.5-5.0) g/dL Assessment and Plan Assessment: Adenocarcinoma of the lung - s/p Right upper lobectomy with chest tube in place - pain control - pulm hygeine HTN elevated - ACEI resumed - BB can be restarted if okay with CT surgery Blood loss anemia, thrombocytopenia, anticipated - no indication for transfusion - follow CBC IKE - has home CPAP and will use HLD - statin Hyperkalemia, resolved JUNAID, undetermined cause, resolved DVT prophylaxis: Heparin Discussed with: patient, nursing Anticipated discharge: per primary team Anticipated discharge place: home A total of 25 minutes was spent on the care of this complex patient more than 50% of the time was spent in counseling and care coordination.
--- NOTE | 2018-12-23 14:59 | P.PN ---
Subjective Progress Note Date: 12/23/18 This is a pleasant 68-year-old gentleman who follows regularly with Dr. Joseph in the office. Patient underwent a robotic-assisted thorascopic right upper lobectomy with mediastinal lymph node dissection by Dr. Corbett yesterday. She was evaluated preoperatively by Dr. Joseph, he underwent an MPI that showed a fixed inferior wall defect consistent with his known prior inferior wall myocardial infarction with no evidence of stress-induced ischemia. His level of activity had remained stable without any changes. Patient does have documented history of hypertension, hyperlipidemia, peripheral vascular disease, COPD, nicotine dependence, prior PTCA of the RCA in 1994. Patient overall is doing well, right-sided chest tubes in place, there is a continuous air leak, however the chest x-ray did not reveal any evidence of a pneumothorax. There is a minimal subsegmental atelectasis in the left lung base. He is tolerating ambulation, reaching 2000 on his incentive spirometer. Blood press ure 110/60 with a heart rate in the 60s, 90% on room air. White blood cell count 6.7, hemoglobin 11.5, platelet count 149. Sodium 140, potassium 4.5, BUN 26, creatinine 1.5. 12/23/2008 Patient seen and examined this morning, awake and alert, in no acute distress, pulse ox is morning 94%, afebrile, hemodynamically stable. Pain is under reasonable control. He is achieving 2000 on his incentive spirometry, continues to have right-sided chest tube in place. He did ambulate in the hallway today without much difficulty. Hemoglobin today 10.6, white blood cell count 5.2, sodium 136. Chest x-ray was reviewed showing stable right apical pneumothorax at 10%. Objective - Vital Signs Vital signs: Vital Signs Temp 97 F L 12/23/18 11:52 Pulse 76 12/23/18 11:52 Resp 16 12/23/18 11:52 BP 128/71 12/23/18 11:52 Pulse Ox 94 L 12/23/18 11:52 Intake & Output 12/22/18 12/23/18 12/23/18 18:59 06:59 18:59 Intake Total 360 744 Output Total 207 250 Balance 153 -250 744 Weight 107.4 kg Intake: Intake, IV Titration 300 Amount Sodium Chloride 0.9% 1, 300 000 ml @ 100 mls/hr IV . Q10H [facility] Rx#:[id number] Oral 360 444 Output: Chest Tube Drainage 250 Chest Tube Right 250 Post Void Residual 207 Other: Voiding Method Urinal Toilet # Voids 1 2 - Exam GENERAL EXAM: Alert, pleasant, 68-year-old white male in room air comfortable in no apparent distress. HEAD: Normocephalic/atraumatic. EYES: Normal reaction of pupils, equal size. Conjunctiva pink, sclera white. NOSE: Clear with pink turbinates. THROAT: No erythema or exudates. NECK: No masses, no JVD, no thyroid enlargement, no adenopathy. CHEST: No chest wall deformity. Symmetrical expansion. Right-sided chest tube is in place, and there is a continuous air leak, there is small amount of serosanguineous output in the Pleur-evac. LUNGS: Equal air entry with diminished breath sounds at the bases, with coarse crackles, but no wheeze, rhonchi or dullness. CVS: Regular rate and rhythm, normal S1 and S2, no gallops, no murmurs, no rubs ABDOMEN: Soft, nontender. No hepatosplenomegaly, normal bowel sounds, no guarding or rigidity. EXTREMITIES: No clubbing, no edema, no cyanosis, 2+ pulses and upper and lower extremities. MUSCULOSKELETAL: Muscle strength and tone normal. SPINE: No scoliosis or deformity SKIN: No rashes CENTRAL NERVOUS SYSTEM: Alert and oriented -3. No focal deficits, tone is normal in all 4 extremities. PSYCHIATRIC: Alert and oriented -3. Appropriate affect. Intact judgment and insight. - Labs CBC & Chem 7: 12/23/18 05:57 12/23/18 05:57 Labs: Abnormal Lab Results - Last 24 Hours (Table) 12/23/18 12/23/18 Range/Units 05:57 05:57 RBC 3.53 L (4.30-5.90) m/uL Hgb 10.6 L (13.0-17.5) gm/dL Hct 31.6 L (39.0-53.0) % Plt Count 134 L (150-450) k/uL Lymphocytes # 0.9 L (1.0-4.8) k/uL Sodium 136 L (137-145) mmol/L Glucose 132 H (74-99) mg/dL Calcium 7.8 L (8.4-10.2) mg/dL Total Protein 5.6 L (6.3-8.2) g/dL Albumin 3.1 L (3.5-5.0) g/dL Assessment and Plan Plan: Assessment and Plan: #1. Right upper lobe mass, with hypermetabolic uptake on the PET scan, and no evidence of metastasis status post thoracoscopic robotic-assisted right upper lobectomy, postoperative day 1. Frozen section was consistent with primary pulmonary adenocarcinoma, and bronchial margin was negative by frozen section #2. Acute kidney injury, MATTHEW inhibitor is on hold #3. Mild hyperkalemia, improved #4. Former heavy tobacco smoker, [id number] smoking history, in remission for last 2 years #5. History of coronary artery disease, status post PTCA and previous history of myocardial infarction #6. Hypertensive disorder #7. Hyperlipidemia #8. Gout #9. Aortic aneurysm status post repair Plan: From cardiology's perspective, we will recommend to continue this patient on his current medications. He MATTHEW inhibitor initially was held because of abnormal renal function. We will start a small dose of Altace 2.5mg PO BID. DNP note has been reviewed, I agree with a documented findings and plan of care. Patient was seen and examined.
[2018-12-23] MEDS: SENNOSIDES-DOCUSATE SODIUM 1 EACH TAB PO SCH (22:06)
[2018-12-24] MEDS: PANTOPRAZOLE 40 MG TABLET PO SCH (06:46)
[2018-12-24 06:47] LABS: HCT 31.6 % (39.0-53.0); HGB 10.6 gm/dL (13.0-17.5); MCHC 33.7 g/dL (31.0-37.0); MCV 89.1 fL (80.0-100.0); Mean Platelet Volume 6.4; Platelet Count 136 k/uL (150-450); RBC 3.55 m/uL (4.30-5.90); RDW 14.4 % (11.5-15.5); WBC 4.3 k/uL (3.8-10.6)
[2018-12-24] MEDS: traMADol 50 MG TAB PO SCH ×4 (06:48→23:24)
[2018-12-24 06:55] LABS: Calcium 8.3 mg/dL (8.4-10.2); Potassium 4.8 mmol/L (3.5-5.1)
--- NOTE | 2018-12-24 07:32 | XR ---
EXAMINATION TYPE: XR chest 2V DATE OF EXAM: 12/24/2018 COMPARISON: Chest x-ray from yesterday HISTORY: Post lobectomy which chest tube progress study. TECHNIQUE: Frontal and lateral views of the chest are obtained. FINDINGS: There is persistent small right apical pneumothorax despite right apical chest tube. No me diastinal shift. Patchy left basilar atelectasis and/or infiltrate. The cardiac silhouette size is s table and within normal limits with atherosclerotic and ectatic aorta. The osseous structures are i ntact. IMPRESSION: Stable small left apical pneumothorax despite chest tube placement. Stable patchy left b asilar acute atelectasis and/or infiltrate.
--- NOTE | 2018-12-24 07:58 | P.PN ---
Subjective Progress Note Date: 12/24/18 Principal diagnosis: Lung mass right upper lobe, with positive uptake on PET. Previous medical history of heavy tobacco dependence, obstructive sleep apnea with CPAP use, coronary artery disease and myocardial infarction status post stenting, hypertension, hyperlipidemia, abdominal aortic aneurysm status post aorto bi- iliac surgery, gout POD #3 robotic-assisted thoracoscopic right upper lobectomy with mediastinal lymph node dissection, pathology pending, frozen section consistent with primary pulmonary adenocarcinoma. Post operative acute kidney injury, unexpected. The patient is currently sitting up in a recliner in no acute distress. States pain is controlled with current medication regimen. Denies shortness of breath. Has been ambulatory in the hallway. Chest tube remains to waterseal, intermittent air leak continues with heavy coughing, positive tidaling with respirations. No new concerns. Objective - Vital Signs Vital signs: Vital Signs Temp 98.2 F 12/24/18 04:00 Pulse 73 12/24/18 04:00 Resp 18 12/24/18 04:00 BP 140/69 12/24/18 04:00 Pulse Ox 94 L 12/24/18 04:00 Intake & Output 12/23/18 12/24/18 12/24/18 18:59 06:59 18:59 Intake Total 966 Output Total 100 570 Balance 866 -570 Weight 109 kg Intake: Intake, IV Titration 300 Amount Sodium Chloride 0.9% 1, 300 000 ml @ 100 mls/hr IV . Q10H [facility] Rx#:[id number] Oral 666 Output: Chest Tube Drainage 100 Chest Tube Right 100 Drainage 170 Right Chest 170 Urine 400 Other: Voiding Method Toilet Toilet # Voids 2 1 - Constitutional General appearance: Present: cooperative, no acute distress, obese - Respiratory Details: Respirations even, nonlabored. Currently on room air with oxygen saturation 94%. Able to achieve 2250 mL on his incentive spirometry. Strong cough. Right pleural chest tube remains to waterseal, 130 mL serous and was drainage overnight, 350 mL in the last 24 hours, intermittent air leak present with a strong forceful coughing, positive tidaling with respiration. - Cardiovascular Details: S1, S2 present. Regular rate and rhythm, sinus rhythm on telemetry. Palpable peripheral pulses bilaterally. No edema present. No calf pain or tenderness noted. SCDs present. - Gastrointestinal Gastrointestinal Comment(s): Abdomen soft, nontender, nondistended. Active bowel sounds present 4 quadran ts. Tolerating diet. Positive flatus, negative bowel movement. - Genitourinary Genitourinary Comment(s): Continues to void clear, yellow urine. - Integumentary Integumentary Comment(s): Skin is warm and dry with evidence of good perfusion. - Neurologic Neurologic: Present: CNII-XII intact - Musculoskeletal Musculoskeletal: Present: gait normal, strength equal bilaterally - Psychiatric Psychiatric: Present: A&O x's 3, appropriate affect, intact judgment & insight - Allied health notes Allied health notes reviewed: nursing - Labs CBC & Chem 7: 12/24/18 06:12 12/24/18 06:12 Labs: Abnormal Lab Results - Last 24 Hours (Table) 12/24/18 12/24/18 Range/Units 06:12 06:12 RBC 3.55 L (4.30-5.90) m/uL Hgb 10.6 L (13.0-17.5) gm/dL Hct 31.6 L (39.0-53.0) % Plt Count 136 L (150-450) k/uL Glucose 132 H (74-99) mg/dL Calcium 8.3 L (8.4-10.2) mg/dL - Imaging and Cardiology Chest x-ray: report reviewed, image reviewed Assessment and Plan Assessment: 1. Right upper lobe mass with positive uptake on PET, status post robotic assisted right upper lobectomy, pathology pending, frozen section consistent with primary pulmonary adenocarcinoma 2. Previous heavy tobacco dependence 3. Obstructive sleep apnea with home CPAP use 4. Coronary artery disease with previous myocardial infarction status post stenting 5. Hypertension 6. Hyperlipidemia 7. Previous abdominal aortic aneurysm status post aortobiiliac surgery 8. Postoperative acute kidney injury Plan: 1. Continue right chest tube to water seal, monitor for resolution of air leak 2. Encourage incentive spirometry use 10 x hour 3. Monitor daily chest x-rays 4. Bronchodilators/CPAP per pulmonology 5. Continue current pain medication regimen 6. Increase activity, continue to ambulate in hallway 8. GI/DVT prophylaxis 9. Milk of magnesia today 10. More recommendations to follow Time with Patient: Greater than 30
[2018-12-24] MEDS: IPRATROPIUM-ALBUTEROL 3 ML NEB IH SCH ×4 (08:09→20:44)
[2018-12-24] MEDS: ATENOLOL 25 MG TAB PO SCH (09:54)
[2018-12-24] MEDS: HEPARIN SODIUM,PORCINE 5,000 UNIT/ML 1 ML VIAL SQ SCH ×3 (09:55→23:24)
[2018-12-24] MEDS: ASPIRIN 81 MG PO SCH (09:55)
[2018-12-24] MEDS: ATORVASTATIN 20 MG TAB PO SCH (09:55)
[2018-12-24] MEDS: LISINOPRIL 10 MG TAB PO SCH (09:55)
[2018-12-24] MEDS: VENLAFAXINE HCL ER 75 MG CAP PO SCH (09:55)
[2018-12-24] MEDS: PROBENECID 500 MG TAB PO SCH (09:55)
--- NOTE | 2018-12-24 11:37 | CDI ---
Documentation Clarification Form Date: 12/24/2018 10:57:00 AM From: Mayelin Siegel RN, CCDS Admit Date: 12/21/2018 11:25:00 AM Patient Name: Delroy Younger Visit Number: [id number] Discharge Date: ATTENTION: The Clinical Documentation Specialists (CDI) and [facility] Coding Staff appreciate your assistance in clarifying documentation. Please respond to the clarification below the line at the bottom and electronically sign. The CDI & [facility] Coding staff will review the response and follow-up if needed. Please note: Queries are made part of the Legal Health Record. If you have any questions, please contact the author of this message via ITS. Dr. Christine Morgan A diagnosis of blood loss anemia lacks specificity to accurately reflect your patients severity of condition and clarification is needed. History/Risk Factors: Adenocarcinoma of the lung, Right upper lobectomy, Clinical indicators: 68-year-old male who present for elective right upper lobectomy secondary to mass. He underwent a robotic-assisted thoracoscopic with right upper lobectomy and mediastinal lymph node dissection on 12/21. Pre-op (12/15/18) HGB 14.0, HCT 41.7 12/21/18 HGB 12.5, HCT 37.6 12/22/18 HGB 11.4, HCT 34.8 12/23/18 HGB 10.6, HCT 31.6 Treatment: Monitor CBC In order to capture the severity of condition, please further clarify blood loss anemia if known: Acute blood loss anemia, anticipated/expected Unable to determine Other, please specify (Last Revision: November 2016) Acute blood loss anemia, anticipated/expected MTDD
--- NOTE | 2018-12-24 12:12 | CDI ---
Documentation Clarification Form Date: 12/24/2018 11:37:49 AM From: Mayelin Siegel RN, CCDS Admit Date: 12/21/2018 11:25:00 AM Patient Name: Delroy Younger Visit Number: [id number] Discharge Date: ATTENTION: The Clinical Documentation Specialists (CDI) and [facility] Coding Staff appreciate your assistance in clarifying documentation. Please respond to the clarification below the line at the bottom and electronically sign. The CDI & [facility] Coding staff will review the response and follow-up if needed. Please note: Queries are made part of the Legal Health Record. If you have any questions, please contact the author of this message via ITS. Dr. Oralia Mcintyre Pneumothorax is documented in your ongoing progress notes starting on 12/23 and further clarification is needed. Patients Admitting Diagnosis: Lung mass right upper lobe, adenocarcionma Post-Operative Diagnosis: Same Procedure performed: Robotic-assisted thoracoscopic right upper lobectomy with mediastinal lymph node dissection. History/Risk Factors: Tumor, lung right upper lobe, Former smoker, COPD Clinical Indicators: 68-year-old male present for elective procedure, Robotic- assisted thoracosopic right upper lobectomy and the end of the procedure a 28 Pashto chest tube was placed posterior apically and secured. Follow up chest xr: Chest tube in good position. No evidence of active cardiopulmonary disease, No pneumothorax is seen. 12/23/18 progress notes: Chest tube is in place, to water seal, and there is intermittent air leak noted with positioning. Chest XR has been reviewed showing stable right apical pneumothorax estimated to be at 10 % VS: 128/71 76 16 97, 94 % 12/22/18 CXR: Inspiration improved. Minimal subsegmental atelectasis left lung base. No pneumothorax 12/23/18 CXR: Stable right apical pneumothorax estimated at 10% Treatment: Incentive spirometer, cough and deep breathing Continue nebulized bronchodilators maintain pain control In order to accurately reflect this patients severity of illness, please clarify if the findings of an apical pneumothorax diagnosis is: An expected post-procedural or post-surgical condition An unexpected post-procedural or post-surgical condition related to surgical care (a complication of care) An unexpected post-procedural or post-surgical condition, related to the patients underlying medical comorbidities Other, please specify Unable to determine (Last Revision: May 2018) MTDD
--- NOTE | 2018-12-24 12:22 | P.PN ---
Subjective Progress Note Date: 12/24/18 Principal diagnosis: Right upper lobe mass, status post right upper lobectomy This is a 68-year-old white male patient of Dr. Laz Bright, with past medical history of myocardial infarction, and PTCA 20 years ago, abdominal aortic aneurysm repair, hypertension, hyperlipidemia, [place] diabetes mellitus, obstructive sleep apnea on CPAP. Patient has [id number] smoking history, quit smoking 2 years ago. He was seen by his PCP and was scheduled for a routine screening low-dose computed tomography scan in view of his smoking history and was found to have a right upper lobe mass noted medially measuring 2.4 x 2.6 cm that was felt to reflect malignancy. There was extension into the medial pleural surface. A 3 mm pleural-based nodule in the right upper lobe, no left-sided pulmonary nodules were identified, no mediastinal lymphadenopathy, some mild COPD, he was referred to Dr. Matthews/Dr. Perkins for pulmonary evaluation, he underwent outpatient pre-and post-spirometry which revealed an FEV1 value of 101% of predicted with no change post bronchodilator. Patient has no shortness of breath performing his day-to-day activities, no recent weight loss, no hemoptysis, no cough or congestion. Outpatient PET scan on 11/08/2018 showed abnormal hypermetabolic uptake in the medial right upper lobe nodule with max SUV of 7.89, with no additional areas of suspicious hypermetabolic uptake in either lung, no hypermetabolic adenopathy. No evidence of distant metastasis. 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 Patient was referred to cardiothoracic surgery, and on 12/21/2018 patient underwent robotic-assisted thoracoscopic right upper lobectomy with mediastinal lymph node dissection. We're seeing the patient's on selective care unit, on postoperative day one. He is doing well, he is on room air, right-sided chest t ube is in place, and is a continuous air leak, however chest x-ray today shows no evidence of pneumothorax, and minimal subsegmental atelectasis at the left lung base. Patient tolerating ambulation, he is pulling 2000 on his incentive spirometer, no specific complaints. On 12/23/2018 patient seen in follow-up on selective care unit, he is awake and alert, in no acute distress, he is resting comfortably in bed, he did wear his home CPAP unit last night, quite compliant with it, currently room air pulse ox is 94%, he is afebrile, hemodynamically stable, his pain is reasonably controlled, lung surgery of some crackles over right lower base, no rhonchi, no wheezing, he is working on incentive spirometer, he is achieving over 2000 ML on the today, right-sided chest tube is in place, to water seal, and there is intermittent air leak noted with positioning. Patient has been ambulating, tole rating it well, today's lab work has been reviewed, fairly unremarkable, hemoglobin is 10.6, and white blood cell count is 5.2, sodium is 136, the rest of the electrolytes and renal profile were within normal limits. His chest x- ray has been reviewed showing stable right apical pneumothorax estimated to be at 10%. On 12/24/2018 patient seen in follow-up on selective care unit, his right-sided chest tube still has a mild intermittent air leak, remains to water seal, and patient on 100 mL of servicing this output in the last 24 hours, today's chest x-ray showed a stable small left apical pneumothorax, stable patchy left basilar acute atelectasis. Hemodynamically patient is stable, he is been tolerating ambulation, he is achieving 2000 on his incentive spirometer today, lung sounds positive for soft centimeters by sounds over right lower lobe, and some minimal crackles. No rhonchi, no wheezes. No pulse ox is 95%, afebrile Objective - Vital Signs Vital signs: Vital Signs Temp 97.6 F 12/24/18 12:00 Pulse 67 12/24/18 12:00 Resp 18 12/24/18 12:00 BP 123/65 12/24/18 12:00 Pulse Ox 95 12/24/18 12:00 Intake & Output 12/23/18 12/24/18 12/24/18 18:59 06:59 18:59 Intake Total 966 360 Output Total 100 570 Balance 866 -570 360 Weight 109 kg Intake: Intake, IV Titration 300 Amount Sodium Chloride 0.9% 1, 300 000 ml @ 100 mls/hr IV . Q10H GERSON Rx#:[id number] Oral 666 360 Output: Chest Tube Drainage 100 Chest Tube Right 100 Drainage 170 Right Chest 170 Urine 400 Other: Voiding Method Toilet Toilet # Voids 2 1 - Exam GENERAL EXAM: Alert, pleasant, 68-year-old white male in room air comfortable in no apparent distress. HEAD: Normocephalic/atraumatic. EYES: Normal reaction of pupils, equal size. Conjunctiva pink, sclera white. NOSE: Clear with pink turbinates. THROAT: No erythema or exudates. NECK: No masses, no JVD, no thyroid enlargement, no adenopathy. CHEST: No chest wall deformity. Symmetrical expansion. Right-sided chest tube is in place, and there is a continuous air leak, there is small amount of serosanguineous output in the Pleur-evac. LUNGS: Equal air entry with diminished breath sounds at the bases, with coarse crackles, but no wheeze, rhonchi or dullness. CVS: Regular rate and rhythm, normal S1 and S2, no gallops, no murmurs, no rubs ABDOMEN: Soft, nontender. No hepatosplenomegaly, normal bowel sounds, no guarding or rigidity. EXTREMITIES: No clubbing, no edema, no cyanosis, 2+ pulses and upper and lower extremities. MUSCULOSKELETAL: Muscle strength and tone normal. SPINE: No scoliosis or deformity SKIN: No rashes CENTRAL NERVOUS SYSTEM: Alert and oriented -3. No focal deficits, tone is normal in all 4 extremities. PSYCHIATRIC: Alert and oriented -3. Appropriate affect. Intact judgment and insight. - Labs CBC & Chem 7: 12/24/18 06:12 12/24/18 06:12 Labs: Abnormal Lab Results - Last 24 Hours (Table) 12/24/18 12/24/18 Range/Units 06:12 06:12 RBC 3.55 L (4.30-5.90) m/uL Hgb 10.6 L (13.0-17.5) gm/dL Hct 31.6 L (39.0-53.0) % Plt Count 136 L (150-450) k/uL Glucose 132 H (74-99) mg/dL Calcium 8.3 L (8.4-10.2) mg/dL Assessment and Plan Plan: Assessment: #1. Right upper lobe mass, with hypermetabolic uptake on the PET scan, and no evidence of metastasis status post thoracoscopic robotic-assisted right upper lobectomy, postoperative day 2. Frozen section was consistent with primary pulmonary adenocarcinoma, and bronchial margin was negative by frozen section #2. Acute kidney injury, MATTHEW inhibitor is on hold #3. Mild hyperkalemia, improved #4. Former heavy tobacco smoker, [id number] smoking history, in remission for last 2 years #5. History of coronary artery disease, status post PTCA and previous history of myocardial infarction #6. Hypertensive disorder #7. Hyperlipidemia #8. Gout #9. Aortic aneurysm status post repair Plan: Continue encouraging deep breathing and coughing, and ambulation, patient is working on incentive spirometer, his chest x-ray shows stable appearance of right apical pneumothorax, patient still has mild intermittent air leak from the right chest tube, overall remains stable. I performed a history & physical examination of the patient and discussed their management with my nurse practitioner, Dara Escalante. I reviewed the nurse practitioner's note and agree with the documented findings and plan of care. Lung sounds are positive for diminished breath sounds, a few scattered rales. The findings and the impression was discussed with the patient. I attest to the documentation by the nurse practitioner. Time with Patient: Less than 30
--- NOTE | 2018-12-24 14:39 | P.PN ---
Progress Note - Text Progress Note Date: 12/24/18 the small apical pneumothrax is an expected finding after lobectomy
--- NOTE | 2018-12-24 19:29 | P.PN ---
Subjective Progress Note Date: 12/24/18 (Delayed charting seen at 1345) Principal diagnosis: lung mass Patient is a 68-year-old male with a past medical history of myocardial infarction status post angioplasty, aortic aneurysm status post aortic biiliac surgery, hypertension, dyslipidemia, and prior tobacco abuse who presented for elective right upper lobectomy secondary to mass. Due to the location of the mass it was not amenable for either percutaneous or transtracheal biopsy. He did undergo a preoperative PET scan which showed avid uptake in the right upper lobe. He underwent a robotic-assisted thoracoscopic with right upper lobectomy and mediastinal lymph node dissection on 12/21. Frozen section was consistent with primary pulmonary adenocarcinoma, bronchial margin was negative by frozen section. He tolerated the procedure well and has s right-sided chest tube inplace. Postoperatively he was noted to have a slightly high potassium level at 5.8 and he was given 1 dose of Kayexalate. His creatinine was also elevated to 1.57 from his baseline of 1.21. He was started on IV fluids and his MATTHEW inhibitor was held. Renal function recovered by 12/23. Patient seen and examined at bedside. Feeling well today. Up and dressed. Still having chest pain with deep inspiration and coughing. No nausea, no vomiting, still no bowel movement. No shortness of breath. Has been up and walking. Objective - Vital Signs Vital signs: Vital Signs Temp 97.6 F 12/24/18 12:00 Pulse 78 12/24/18 15:27 Resp 16 12/24/18 14:59 BP 140/65 12/24/18 14:59 Pulse Ox 94 L 12/24/18 15:20 Intake & Output 12/23/18 12/24/18 12/24/18 18:59 06:59 18:59 Intake Total 966 840 Output Total 100 570 Balance 866 -570 840 Weight 109 kg Intake: Intake, IV Titration 300 Amount Sodium Chloride 0.9% 1, 300 000 ml @ 100 mls/hr IV . Q10H [facility] Rx#:[id number] Oral 666 840 Output: Chest Tube Drainage 100 Chest Tube Right 100 Drainage 170 Right Chest 170 Urine 400 Other: Voiding Method Toilet Toilet # Voids 2 1 2 - Exam General: non toxic, no distress, appears at stated age Derm: warm, dry Head: atraumatic, normocephalic, symmetric Eyes: EOMI, no lid lag, anicteric sclera Mouth: no lip lesion, mucus membranes moist Cardiovascular: S1S2 reg, no murmur, positive posterior tibial pulse bilateral, Lungs: Decreased breath sounds right apex, no rhonchi, no rales , no accessory muscle use, chest tube in place with air leak Abdominal: soft, nontender to palpation, no guarding, no appreciable organomegaly Ext: no gross muscle atrophy, no edema, no contractures Neuro: CN II-XI grossly intact, no focal neuro deficits Psych: Alert, oriented, appropriate affect - Labs CBC & Chem 7: 12/24/18 06:12 12/24/18 06:12 Labs: Abnormal Lab Results - Last 24 Hours (Table) 12/24/18 12/24/18 Range/Units 06:12 06:12 RBC 3.55 L (4.30-5.90) m/uL Hgb 10.6 L (13.0-17.5) gm/dL Hct 31.6 L (39.0-53.0) % Plt Count 136 L (150-450) k/uL Glucose 132 H (74-99) mg/dL Calcium 8.3 L (8.4-10.2) mg/dL Assessment and Plan Assessment: Adenocarcinoma of the lung 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, appears to be stage IIIA - consider medical oncology evaluation as inpatient vs outpatient - s/p Right upper lobectomy with chest tube in place - pain control - pulm hygiene HTN - ACEI, BB - follow BP Blood loss anemia, thrombocytopenia, anticipated outcome of surgery - no indication for transfusion - follow CBC IKE - has home CPAP and will use HLD - statin Hyperkalemia, resolved JUNAID, undetermined cause, resolved DVT prophylaxis: Heparin Discussed with: patient, nursing Anticipated discharge: per primary team Anticipated discharge place: home A total of 25 minutes was spent on the care of this complex patient more than 50% of the time was spent in counseling and care coordination.
[2018-12-24] MEDS: SENNOSIDES-DOCUSATE SODIUM 1 EACH TAB PO SCH (20:43)
[2018-12-24 21:00] VITALS: RESP 18
[2018-12-25 06:12] LABS: HCT 31.6 % (39.0-53.0); HGB 10.8 gm/dL (13.0-17.5); MCH 30.4 pg (25.0-35.0); MCHC 34.2 g/dL (31.0-37.0); Mean Platelet Volume 6.1; Platelet Count 153 k/uL (150-450); RBC 3.55 m/uL (4.30-5.90); RDW 14.3 % (11.5-15.5)
[2018-12-25 06:23] LABS: Calcium 8.1 mg/dL (8.4-10.2); Potassium 4.3 mmol/L (3.5-5.1)
[2018-12-25] MEDS: PANTOPRAZOLE 40 MG TABLET PO SCH (06:27)
[2018-12-25] MEDS: traMADol 50 MG TAB PO SCH (06:27)
[2018-12-25] MEDS: IPRATROPIUM-ALBUTEROL 3 ML NEB IH SCH ×2 (08:00→11:39)
[2018-12-25] MEDS ORDERED: IBUPROFEN 400 MG TAB PO PRN (08:55)
[2018-12-25] MEDS ORDERED: traMADol 50 MG TAB PO PRN (08:55)
--- NOTE | 2018-12-25 09:03 | P.PN ---
Subjective Progress Note Date: 12/25/18 Principal diagnosis: Lung mass right upper lobe, with positive uptake on PET. Previous medical history of heavy tobacco dependence, obstructive sleep apnea with CPAP use, coronary artery disease and myocardial infarction status post stenting, hypertension, hyperlipidemia, abdominal aortic aneurysm status post aorto bi- iliac surgery, gout POD #4 robotic-assisted thoracoscopic right upper lobectomy with mediastinal lymph node dissection, pathology pending, frozen section consistent with primary pulmonary adenocarcinoma. Post operative acute kidney injury, unexpected, resolved. The patient is currently sitting up in bed in no acute distress. States pain is controlled with current medication regimen. Denies shortness of breath. Has been ambulatory in the hallway. Chest tube remains to waterseal, no air leak present, positive tidaling with respirations. No new concerns. Objective - Vital Signs Vital signs: Vital Signs Temp 97.9 F 12/25/18 03:34 Pulse 76 12/25/18 08:18 Resp 18 12/25/18 03:34 BP 117/59 12/25/18 03:34 Pulse Ox 95 12/25/18 03:34 Intake & Output 12/24/18 12/25/18 12/25/18 18:59 06:59 18:59 Intake Total 840 120 360 Output Total 20 Balance 840 100 360 Weight 108.3 kg Intake: Oral 840 120 360 Output: Chest Tube Drainage 20 Chest Tube Right 20 Other: Voiding Method Toilet # Voids 2 1 - Constitutional General appearance: Present: cooperative, no acute distress, obese - Respiratory Details: Respirations even, nonlabored. Currently on room air with oxygen saturation 95%. Able to achieve 2250 mL on his incentive spirometry. Strong cough. Right pleural chest tube remains to waterseal, 20 mL serosanguineous drainage in the last 24 hours, no air leak present, positive tidaling with respiration. - Cardiovascular Details: S1, S2 present. Regular rate and rhythm, sinus rhythm on telemetry. Palpable peripheral pulses bilaterally. No edema present. No calf pain or tenderness noted. SCDs present. - Gastrointestinal Gastrointestinal Comment(s): Abdomen soft, nontender, nondistended. Active bowel sounds present 4 quadrants. Tolerating diet. Positive bowel movement last night. - Genitourinary Genitourinary Comment(s): Continues to void - Integumentary Integumentary Comment(s): Skin is warm and dry with evidence of good perfusion. Right lateral wall incisions well approximated with Dermabond - Neurologic Neurologic: Present: CNII-XII intact - Musculoskeletal Musculoskeletal: Present: gait normal, strength equal bilaterally - Psychiatric Psychiatric: Present: A&O x's 3, appropriate affect, intact judgment & insight - Allied health notes Allied health notes reviewed: nursing - Labs CBC & Chem 7: 12/25/18 05:46 12/25/18 05:46 Labs: Abnormal Lab Results - Last 24 Hours (Table) 12/25/18 12/25/18 Range/Units 05:46 05:46 RBC 3.55 L (4.30-5.90) m/uL Hgb 10.8 L (13.0-17.5) gm/dL Hct 31.6 L (39.0-53.0) % Glucose 114 H (74-99) mg/dL Calcium 8.1 L (8.4-10.2) mg/dL - Imaging and Cardiology Chest x-ray: report reviewed, image reviewed Assessment and Plan Assessment: 1. Right upper lobe mass with positive uptake on PET, status post robotic assisted right upper lobectomy, pathology consistent with primary pulmonary adenocarcinoma invading the visceral pleura with regional lymph node positive for metastatic adenocarcinoma, T2 N2 M0, considered stage IIIA 2. Previous heavy tobacco dependence 3. Obstructive sleep apnea with home CPAP use 4. Coronary artery disease with previous myocardial infarction status post stenting 5. Hypertension 6. Hyperlipidemia 7. Previous abdominal aortic aneurysm status post aortobiiliac surgery 8. Postoperative acute kidney injury, resolved Plan: 1. Right pleural chest tube discontinued without incident. Repeat chest x-ray in 2 hours. 2. Encourage incentive spirometry use 10 x hour 3. Monitor daily chest x-rays 4. Bronchodilators/CPAP per pulmonology 5. Continue current pain medication regimen. Alternate Tylenol with Motrin for pain 6. Increase activity, continue to ambulate in hallway 8. GI/DVT prophylaxis 9. Discharge planning in progress. Likely will discharge to home tomorrow. 10. More recommendations to follow Time with Patient: Greater than 30
[2018-12-25] MEDS: HEPARIN SODIUM,PORCINE 5,000 UNIT/ML 1 ML VIAL SQ SCH (09:46)
[2018-12-25] MEDS: ATORVASTATIN 20 MG TAB PO SCH (09:47)
[2018-12-25] MEDS: ATENOLOL 25 MG TAB PO SCH (09:47)
[2018-12-25] MEDS: VENLAFAXINE HCL ER 75 MG CAP PO SCH (09:47)
[2018-12-25] MEDS: LISINOPRIL 10 MG TAB PO SCH (09:47)
[2018-12-25] MEDS: ASPIRIN 81 MG PO SCH (09:48)
[2018-12-25] MEDS: PROBENECID 500 MG TAB PO SCH (09:48)
--- NOTE | 2018-12-25 10:56 | XR ---
EXAMINATION TYPE: XR chest 2V DATE OF EXAM: 12/25/2018 HISTORY: post lobectomy. REFERENCE: Previous study dated 12/24/2018. FINDINGS: There is a right pleural drain in place. A definite pneumothorax is not identified. There i s platelike atelectasis in the left midlung. There is some confluent airspace disease in the left masha g base. The right lung is clear. Heart size upper limits of normal. I could not exclude a small left effusion. IMPRESSION: 1. ATELECTATIC CHANGE, LEFT LUNG BASE. 2. I CANNOT EXCLUDE A SMALL LEFT EFFUSION. 3. APPARENT RESOLUTION OF THE PATIENT'S RIGHT-SIDED PNEUMOTHORAX.
--- NOTE | 2018-12-25 11:22 | XR ---
EXAMINATION TYPE: XR chest 2V DATE OF EXAM: 12/25/2018 HISTORY: post chest tube removal. REFERENCE: Previous study from earlier this morning. FINDINGS: The patient's right pleural drain has been there is a 510% by volume pneumothorax on the ri ght. There continues to be some mild atelectasis at the left lung base. Heart is not enlarged. I coul d not exclude a tiny left-sided effusion. IMPRESSION: 1. SMALL RIGHT-SIDED APICAL PNEUMOTHORAX. 2. LEFT BASILAR AIRSPACE DISEASE EITHER REPRESENTING ATELECTASIS OR PNEUMONIA. 3. I CANNOT EXCLUDE A TINY LEFT-SIDED EFFUSION.
--- NOTE | 2018-12-25 12:50 | P.PN ---
Subjective Progress Note Date: 12/25/18 (delayed charting seen at 0900) Principal diagnosis: lung mass Patient is a 68-year-old male with a past medical history of myocardial infarction status post angioplasty, aortic aneurysm status post aortic biiliac surgery, hypertension, dyslipidemia, and prior tobacco abuse who presented for elective right upper lobectomy secondary to mass. Due to the location of the mass it was not amenable for either percutaneous or transtracheal biopsy. He did undergo a preoperative PET scan which showed avid uptake in the right upper lobe. He underwent a robotic-assisted thoracoscopic with right upper lobectomy and mediastinal lymph node dissection on 12/21. Frozen section was consistent with primary pulmonary adenocarcinoma, bronchial margin was negative by frozen section. He tolerated the procedure well and has s right-sided chest tube inplace. Postoperatively he was noted to have a slightly high potassium level at 5.8 and he was given 1 dose of Kayexalate. His creatinine was also elevated to 1.57 from his baseline of 1.21. He was started on IV fluids and his MATTHEW inhibitor was held. Renal function recovered by 12/23. He pathology cam back as T2N2 adenocarcinoma with a statin 4 LN involved. Patient seen and examined at bedside. Pain is controlled, no shortness breath, no nausea, no vomiting. Discussed with patient that he did have one lymph node involved. Objective - Vital Signs Vital signs: Vital Signs Temp 97.0 F L 12/25/18 09:44 Pulse 72 12/25/18 11:53 Resp 18 12/25/18 09:44 BP 125/59 12/25/18 09:44 Pulse Ox 95 12/25/18 09:44 Intake & Output 12/24/18 12/25/18 12/25/18 18:59 06:59 18:59 Intake Total 840 120 360 Output Total 20 Balance 840 100 360 Weight 108.3 kg Intake: Oral 840 120 360 Output: Chest Tube Drainage 20 Chest Tube Right 20 Other: Voiding Method Toilet Toilet # Voids 2 1 - Exam General: non toxic, no distress, appears at stated age Derm: warm, dry Head: atraumatic, normocephalic, symmetric Eyes: EOMI, no lid lag, anicteric sclera Mouth: no lip lesion, mucus membranes moist Cardiovascular: S1S2 reg, no murmur, positive posterior tibial pulse bilateral, Lungs:CTA bilateral, no rhonchi, no rales , no accessory muscle use, chest tube in place with air leak Abdominal: soft, nontender to palpation, no guarding, no appreciable organom egaly Ext: no gross muscle atrophy, no edema, no contractures Neuro: CN II-XI grossly intact, no focal neuro deficits Psych: Alert, oriented, appropriate affect - Labs CBC & Chem 7: 12/25/18 05:46 12/25/18 05:46 Labs: Abnormal Lab Results - Last 24 Hours (Table) 12/25/18 12/25/18 Range/Units 05:46 05:46 RBC 3.55 L (4.30-5.90) m/uL Hgb 10.8 L (13.0-17.5) gm/dL Hct 31.6 L (39.0-53.0) % Glucose 114 H (74-99) mg/dL Calcium 8.1 L (8.4-10.2) mg/dL Assessment and Plan Assessment: Adenocarcinoma of the lung T2N2, appears to be stage IIIA but this should be reviewed by oncology - consider medical oncology evaluation as outpatient - s/p Right upper lobectomy with chest tube in place - pain control - pulm hygiene HTN - ACEI, BB - follow BP Blood loss anemia, thrombocytopenia, anticipated outcome of surgery - no indication for transfusion - follow CBC IKE - has home CPAP and will use HLD - statin Hyperkalemia, resolved JUNAID, undetermined cause, resolved per patient, likely being discharged tomorrow. Medically optimized for discharg e. Follow-up with Dr. Mcintosh in 1-[address] barber in 2-4 weeks DVT prophylaxis: Heparin Discussed with: patient, nursing Anticipated discharge: per primary team Anticipated discharge place: home A total of 25 minutes was spent on the care of this complex patient more than 50% of the time was spent in counseling and care coordination.
--- NOTE | 2018-12-25 13:28 | P.PN ---
Subjective Progress Note Date: 12/25/18 Principal diagnosis: Right upper lobe mass, status post right upper lobectomy. This is a 68-year-old white male patient of Dr. Laz Bright, with past medical history of myocardial infarction, and PTCA 20 years ago, abdominal aortic aneurysm repair, hypertension, hyperlipidemia, [place] diabetes mellitus, obstructive sleep apnea on CPAP. Patient has [id number]-grmn smoking history, quit smoking 2 years ago. He was seen by his PCP and was scheduled for a routine screening low-dose computed tomography scan in view of his smoking history and was found to have a right upper lobe mass noted medially measuring 2.4 x 2.6 cm that was felt to reflect malignancy. There was extension into the medial pleural surface. A 3 mm pleural-based nodule in the right upper lobe, no left- sided pulmonary nodules were identified, no mediastinal lymphadenopathy, some mild COPD, he was referred to Dr. Matthews/Dr. Perkins for pulmonary evaluation, he underwent outpatient pre-and post-spirometry which revealed an FEV1 value of 101% of predicted with no change post bronchodilator. Patient has no shortness of breath performing his day-to-day activities, no recent weight loss, no hemoptysis, no cough or congestion. Outpatient PET scan on 11/08/2018 showed abnormal hypermetabolic uptake in the medial right upper lobe nodule with max SUV of 7.89, with no additional areas of suspicious hypermetabolic uptake in either lung, no hypermetabolic adenopathy. No evidence of distant metastasis. 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 Patient was referred to cardiothoracic surgery, and on 12/21/2018 patient underwent robotic-assisted thoracoscopic right upper lobectomy with mediastinal lymph node dissection. We're seeing the patient's on selective care unit, on postoperative day one. He is doing well, he is on room air, right-sided chest tube is in place, and is a continuous air leak, however chest x-ray today shows no evidence of pneumothorax, and minimal subsegmental atelectasis at the left lung base. Patient tolerating ambulation, he is pulling 2000 on his incentive spirometer, no specific complaints. On 12/23/2018 patient seen in follow-up on selective care unit, he is awake and alert, in no acute distress, he is resting comfortably in bed, he did wear his home CPAP unit last night, quite compliant with it, currently room air pulse ox is 94%, he is afebrile, hemodynamically stable, his pain is reasonably controlled, lung surgery of some crackles over right lower base, no rhonchi, no wheezing, he is working on incentive spirometer, he is achieving over 2000 ML on the today, right-sided chest tube is in place, to water seal, and there is intermittent air leak noted with positioning. Patient has been ambulating, to lerating it well, today's lab work has been reviewed, fairly unremarkable, hemoglobin is 10.6, and white blood cell count is 5.2, sodium is 136, the rest of the electrolytes and renal profile were within normal limits. His chest x- ray has been reviewed showing stable right apical pneumothorax estimated to be at 10%. On 12/24/2018 patient seen in follow-up on selective care unit, his right-sided chest tube still has a mild intermittent air leak, remains to water seal, and patient on 100 mL of servicing this output in the last 24 hours, today's chest x-ray showed a stable small left apical pneumothorax, stable patchy left basilar acute atelectasis. Hemodynamically patient is stable, he is been tolerating ambulation, he is achieving 2000 on his incentive spirometer today, lung sounds positive for soft centimeters by sounds over right lower lobe, and some minimal crackles. No rhonchi, no wheezes. No pulse ox is 95%, afebrile. The patient is seen today 12/25/2018 in follow-up on the selective care unit. He is awake and alert in no acute distress. No worsening shortness of breath, cough or congestion. His chest tube was removed this morning. Follow-up chest x-ray reveals a tiny residual right apical pneumothorax. Some atelectatic changes in the left lung base. He is maintaining good O2 saturations in the mid 90s on room air. He's been afebrile. Hemodynamically stable. White count 4.0. Hemoglobin 10.8. Creatinine 1.07. He is continued on bronchodilators. Working well with the incentive spirometer. Up ambulating with assistance. 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 Suspect stage IIIA. Objective - Vital Signs Vital signs: Vital Signs Temp 97.0 F L 12/25/18 09:44 Pulse 72 12/25/18 11:53 Resp 18 12/25/18 09:44 BP 125/59 12/25/18 09:44 Pulse Ox 95 12/25/18 09:44 Intake & Output 12/24/18 12/25/18 12/25/18 18:59 06:59 18:59 Intake Total 840 120 360 Output Total 20 Balance 840 100 360 Weight 108.3 kg Intake: Oral 840 120 360 Output: Chest Tube Drainage 20 Chest Tube Right 20 Other: Voiding Method Toilet Toilet # Voids 2 1 - Exam GENERAL EXAM: Alert, pleasant, 68-year-old white male in room air comfortable in no apparent distress. HEAD: Normocephalic/atraumatic. EYES: Normal reaction of pupils, equal size. Conjunctiva pink, sclera white. NOSE: Clear with pink turbinates. THROAT: No erythema or exudates. NECK: No masses, no JVD, no thyroid enlargement, no adenopathy. CHEST: No chest wall deformity. Symmetrical expansion. LUNGS: Equal air entry with diminished breath sounds at the bases, with coarse crackles, but no wheeze, rhonchi or dullness. CVS: Regular rate and rhythm, normal S1 and S2, no gallops, no murmurs, no rubs ABDOMEN: Soft, nontender. No hepatosplenomegaly, normal bowel sounds, no guarding or rigidity. EXTREMITIES: No clubbing, no edema, no cyanosis, 2+ pulses and upper and lower extremities. MUSCULOSKELETAL: Muscle strength and tone normal. SPINE: No scoliosis or deformity SKIN: No rashes CENTRAL NERVOUS SYSTEM: No focal deficits, tone is normal in all 4 extremities. PSYCHIATRIC: Alert and oriented -3. Appropriate affect. Intact judgment and insight. - Labs CBC & Chem 7: 12/25/18 05:46 12/25/18 05:46 Labs: Abnormal Lab Results - Last 24 Hours (Table) 12/25/18 12/25/18 Range/Units 05:46 05:46 RBC 3.55 L (4.30-5.90) m/uL Hgb 10.8 L (13.0-17.5) gm/dL Hct 31.6 L (39.0-53.0) % Glucose 114 H (74-99) mg/dL Calcium 8.1 L (8.4-10.2) mg/dL Assessment and Plan Assessment: Assessment: #1. Right upper lobe mass, with hypermetabolic uptake on the PET scan, and no evidence of metastasis status post thoracoscopic robotic-assisted right upper lobectomy, postoperative day 2. Frozen section was consistent with primary pulmonary adenocarcinoma, and bronchial margin was negative by frozen section, however lymph node R4 reveals evidence of metastasis. This is a probable IIIa lung cancer. #2. Acute kidney injury, MATTHEW inhibitor is on hold #3. Mild hyperkalemia, improved #4. Former heavy tobacco smoker, [id number] smoking history, in remission for last 2 years #5. History of coronary artery disease, status post PTCA and previous history of myocardial infarction #6. Hypertensive disorder #7. Hyperlipidemia #8. Gout #9. Aortic aneurysm status post repair Plan: The patient was seen and evaluated by Dr. Mcintyre. He did inform normal. His biopsy results including a metastasis to one lymph node. We'll need adjuvant chemotherapy once he is recovered from the surgery. He is agreeable to the plan. We'll repeat a chest x-ray in the a.m. to follow up on that small right apical pneumothorax. Possible discharge in the morning. We'll continue to follow and make further recommendations based on his clinical status. I, the cosigning physician, performed a history & physical examination of the patient. Lungs sounds have few scattered rales. Maintaining good O2 saturations in the 90s on room air. I discussed the assessment and plan of care with my nurse practitioner, Vida Perkins. I attest to the above note as dictated by her.
[2018-12-25 14:12] VITALS: BP 131/61; PULSE 71; TEMP 98.6
== END 2018-12-25 14:35 | disposition home or self-care (01) | DRG 164 ==
LOC: 2ORMAIN 11:25 → 3SCARD 18:08
PROVIDERS: ADMIT Thoracic Surgery (Cardiothoracic Vascular Surgery); ATTEND Thoracic Surgery (Cardiothoracic Vascular Surgery)
PROC: 07B74ZX Excision of Thorax Lymphatic, Percutaneous Endoscopic Approach, Diagnostic (ICD-10-PCS; 2018-12-21)
PROC: 8E0W4CZ Robotic Assisted Procedure of Trunk Region, Percutaneous Endoscopic Approach (ICD-10-PCS; 2018-12-21)
PROC: 0BTC4ZZ Resection of Right Upper Lung Lobe, Percutaneous Endoscopic Approach (ICD-10-PCS; principal; 2018-12-21 13:00)
DX: C34.11 Malignant neoplasm of upper lobe, right bronchus or lung (principal); C77.9 Secondary and unspecified malignant neoplasm of lymph node, unspecified; D62 Acute posthemorrhagic anemia; J93.82 Other air leak; N17.9 Acute kidney failure, unspecified; D69.6 Thrombocytopenia, unspecified; E11.51 Type 2 diabetes mellitus with diabetic peripheral angiopathy without gangrene; I72.3 Aneurysm of iliac artery; E87.5 Hyperkalemia; I65.21 Occlusion and stenosis of right carotid artery; J44.9 Chronic obstructive pulmonary disease, unspecified; E78.5 Hyperlipidemia, unspecified; D72.829 Elevated white blood cell count, unspecified; G47.33 Obstructive sleep apnea (adult) (pediatric); I10 Essential (primary) hypertension; I25.10 Atherosclerotic heart disease of native coronary artery without angina pectoris; I25.2 Old myocardial infarction; M10.9 Gout, unspecified; E66.9 Obesity, unspecified; Z68.32 Body mass index [BMI] 32.0-32.9, adult; Z79.82 Long term (current) use of aspirin; Z79.899 Other long term (current) drug therapy; Z85.828 Personal history of other malignant neoplasm of skin; Z86.79 Personal history of other diseases of the circulatory system; Z87.891 Personal history of nicotine dependence; Z96.642 Presence of left artificial hip joint; Z91.030 Bee allergy status; Z80.9 Family history of malignant neoplasm, unspecified; Z82.49 Family history of ischemic heart disease and other diseases of the circulatory system; Y83.8 Other surgical procedures as the cause of abnormal reaction of the patient, or of later complication, without mention of misadventure at the time of the procedure
CPT/HCPCS: 36415; 71045; 71046; 80048; 80051; 80053; 82565; 82947; 84520; 85025; 85027; 85610; 85730; 86850; 86900; 86901; 88305; 88309; 88313; 88331; 88332; 88341; 88342; 94640; 94760

== ENCOUNTER → 2019-01-19 | Outpatient (CLI) | payer MEDICARE ==
[2019-01-19 16:08] LABS: African American GFR (CKD) 72.1 (60.0-200.0); Non-African American GFR(CKD) 62.2 (60.0-200.0)
== END | disposition home or self-care (01) ==
LOC: LABWHC1 10:09
PROVIDERS: ATTEND Surgery
DX: I72.3 Aneurysm of iliac artery (principal)
CPT/HCPCS: 36415; 82565; 84520

== ENCOUNTER → 2019-01-22 | Outpatient (CLI) | payer MEDICARE ==
--- NOTE | 2019-01-24 09:01 | CT ---
EXAMINATION TYPE: CT angio abdomen pelvis DATE OF EXAM: 01/22/2019 COMPARISON: None HISTORY: Right iliac artery aneurysm. CT DLP: 1617 mGycm CONTRAST: CTA thoracic and abdominal aorta with 3-D reconstruction is performed without Oral Contrast and witho ut and with IV Contrast, patient injected with 100 mL of Isovue 370. Contrast CTA of the abdominal aorta was performed from the lung bases through the base of the pelvis. 3-D reconstruction imaging obtained at a separate workstation. CONTRAST CT ABDOMEN AND PELVIS ABDOMINAL AORTA: Distal aortic bypass graft is noted to be in place. There is a right infrarenal abdo shey aortic aneurysm measuring 3.4 cm AP dimension. There is a large right internal iliac artery ane urysm measuring 6.7 x 7.1 cm. There is slow flow suggesting thrombosis. There is a left common iliac artery aneurysm distally measuring 3.4 cm. Right lung base: Right basilar small pleural effusion and/or pleural thickening. LIVER/GB- No significant abnormality is seen. PANCREAS- No significant abnormality is seen. SPLEEN- No significant abnormality is seen. ADRENALS- No significant abnormality is seen. KIDNEYS/BLADDER-renal cystic changes noted. BOWEL- No Significant abnormality GENITAL ORGANS: No gross abnormality seen. LYMPH NODES- No greater than 1cm abdominal or pelvic lymph nodes are appreciated. OSSEOUS STRUCTURES-postoperative changes left hip. Severe degenerative change lower lumbar spine. OTHER- No significant abnormality is seen. IMPRESSION- 1. Infrarenal abdominal aortic aneurysm. 2. Iliac artery aneurysms right much greater than left as discussed above with slow flow within the r ight-sided internal iliac artery aneurysm suggests possible thrombosis.
== END | disposition home or self-care (01) ==
LOC: RADCTMAIN 14:59
PROVIDERS: ATTEND Surgery
DX: I71.4 Abdominal aortic aneurysm, without rupture (principal)
CPT/HCPCS: 74174; Q9967

== ENCOUNTER 2019-02-18 13:39 | Emergency (ER) | payer MEDICARE ==
[2019-02-18 13:56] VITALS: RESP 18
--- NOTE | 2019-02-18 14:18 | ED ---
General Adult HPI - General Source: patient, family, EMS, RN notes reviewed Mode of arrival: EMS Limitations: no limitations <Gerard Lynn - Last Filed: 02/18/19 16:29> <Maurilio Mckeon - Last Filed: 02/18/19 17:36> - General Chief complaint: Extremity Injury, Lower Stated complaint: Hip pain Time Seen by Provider: 02/18/19 13:43 - History of Present Illness Initial comments: Patient is a pleasant 68-year-old male presenting to the emergency Department with complaints of left hip pain. Patient did have stents placed in the celiac arteries bilaterally 1 week ago. Patient was discharged or days ago. Patient has been having some mild discomfort of his posterior hips which he was told to be normal. Discomfort was worse today. Discomfort was 5/10 however patient had a hard time finding a comfortable position. Patient states discomfort is starting to improve and is down to 2/10. Patient denies any cold sensation or color change or pain or paresthesias to the feet. No weakness. No history of similar symptoms previously. (Gerard Lynn) - Related Data Home Medications Medication Instructions Recorded Confirmed Atenolol [Tenormin] 25 mg PO DAILY 12/17/18 02/18/19 Ramipril [Altace] 5 mg PO DAILY 12/17/18 02/18/19 Rosuvastatin [Crestor] 10 mg PO DAILY 12/17/18 02/18/19 Venlafaxine HCl [Effexor XR] 75 mg PO DAILY 12/17/18 02/18/19 Ascorbic Acid [Vitamin C] 500 mg PO DAILY 02/18/19 02/18/19 Flaxseed Oil 1,000 mg PO DAILY 02/18/19 02/18/19 Ibuprofen [Motrin] 600 mg PO Q8HR PRN 02/18/19 02/18/19 Turmeric Root Extract [Turmeric] 500 mg PO DAILY 02/18/19 02/18/19 Ubidecarenone [Co Q-10] 100 mg PO DAILY 02/18/19 02/18/19 Vitamin B Complex 1 cap PO DAILY 02/18/19 02/18/19 Allergies Allergy/AdvReac Type Severity Reaction Status Date / Time bee pollen Allergy Anaphylaxis Verified 02/18/19 14:27 Review of Systems ROS Other: All systems not noted in ROS Statement are negative. Constitutional: Denies: fever Eyes: Denies: eye pain ENT: Denies: ear pain Respiratory: Denies: cough Cardiovascular: Denies: chest pain Endocrine: Denies: fatigue Gastrointestinal: Denies: abdominal pain, nausea, vomiting Genitourinary: Denies: dysuria Musculoskeletal: Reports: as per HPI Skin: Denies: rash Neurological: Denies: weakness <Gerard Lynn - Last Filed: 02/18/19 16:29> ROS Other: All systems not noted in ROS Statement are negative. <Maurilio Mckeon - Last Filed: 02/18/19 17:36> ROS Statement: Those systems with pertinent positive or pertinent negative responses have been documented in the HPI. Past Medical History Past Medical History: Cancer, COPD, Hyperlipidemia, Hypertension, Myocardial Infarction (MS), Sleep Apnea/CPAP/BIPAP Additional Past Medical History / Comment(s): spot right upper lung, hx. skin cancer, uses CPAP, gout Last Myocardial Infarction Date:: 1996 History of Any Multi-Drug Resistant Organisms: None Reported Past Surgical History: Heart Catheterization, Joint Replacement Additional Past Surgical History / Comment(s): AAA repair 2002, & then lysis of adhesions, left hip replaced, vasectomy, B iliac aneurysm repair Past Anesthesia/Blood Transfusion Reactions: No Reported Reaction Past Psychological History: Anxiety Smoking Status: Former smoker Past Alcohol Use History: None Reported Past Drug Use History: Marijuana - Past Family History Mother Family Medical History: Cancer, Deep Vein Thrombosis (DVT) <Gerard Lynn - Last Filed: 02/18/19 16:29> General Exam Limitations: no limitations General appearance: alert, in no apparent distress Head exam: Present: normocephalic Eye exam: Present: normal appearance Neck exam: Present: normal inspection Respiratory exam: Present: normal lung sounds bilaterally Cardiovascular Exam: Present: regular rate, normal rhythm Expanded Peripheral pulses: 0: Femoral (L), Posterior Tibialis (L), Dorsalis Pedis (L), 2+: Femoral (R), Posterior Tibialis (R), Dorsalis Pedis (R) GI/Abdominal exam: Present: soft. Absent: tenderness Extremities exam: Present: normal inspection, other (unable to palpate pulses on the left. Bilateral mild coolness of the feet is equal. Mild pallor of the lef t foot. Cap refill 3-4 seconds bilateral.). Absent: calf tenderness Neurological exam: Present: alert. Absent: motor sensory deficit Psychiatric exam: Present: normal affect, normal mood Skin exam: Present: normal color <Gerard Lynn - Last Filed: 02/18/19 16:29> Course <Gerard Lynn - Last Filed: 02/18/19 16:29> Vital Signs 02/18/19 13:48 Temperature 97.9 F Pulse Rate 62 Respiratory 18 Rate Blood Pressure 149/82 O2 Sat by Pulse 100 Oximetry - Reevaluation(s) Reevaluation #1: 02/18/19 14:43 Dr. Steinberg has been paged several times, still pending return call. CT will be ordered now that creatinine is resulted. 02/18/19 15:00 case was discussed with Dr. Steinberg who wasn't procedure and she is made aware of case. She is agreeable with computed tomography scan. 02/18/19 15:27 case again discussed with Dr. Steinberg who is still in procedure. She requests heparin and will review films prior to disposition. (Gerard Lynn) Medical Decision Making - Lab Data Result diagrams: 02/18/19 14:01 02/18/19 14:01 - Radiology Data Radiology results: report reviewed (As discussed with radiologist there is complete thrombosis of the left internal and common iliac artery.) <Gerard Lynn - Last Filed: 02/18/19 16:29> - Lab Data Result diagrams: 02/18/19 14:01 02/18/19 14:01 <Maurilio Mckeon - Last Filed: 02/18/19 17:36> - Medical Decision Making Patient was endorsed me at our shift change pending disposition by Dr. Steinberg. Patient will be transferred to [facility] for further evaluation. The transfer will be ER to ER. I did discuss the case with Dr. Villanueva. Patient will be transferred by EMS. I did discuss this with the patient and family members were present. The patient is stated he is feeling improved however his left lower extremity still cool to touch compared to the right side. This is consistent with the findings. (Maurilio Mckeon) - Lab Data Lab Results 02/18/19 02/18/19 02/18/19 Range/Units 14:01 14:01 14:01 WBC 7.1 (3.8-10.6) k/uL RBC 3.51 L (4.30-5.90) m/uL Hgb 10.6 L (13.0-17.5) gm/dL Hct 30.6 L (39.0-53.0) % MCV 87.2 (80.0-100.0) fL MCH 30.3 (25.0-35.0) pg MCHC 34.7 (31.0-37.0) g/dL RDW 14.2 (11.5-15.5) % Plt Count 194 (150-450) k/uL Neutrophils % 83 % Lymphocytes % 9 % Monocytes % 5 % Eosinophils % 1 % Basophils % 1 % Neutrophils # 5.9 (1.3-7.7) k/uL Lymphocytes # 0.6 L (1.0-4.8) k/uL Monocytes # 0.3 (0-1.0) k/uL Eosinophils # 0.1 (0-0.7) k/uL Basophils # 0.0 (0-0.2) k/uL PT 10.0 (9.0-12.0) sec INR 0.9 (<1.2) APTT 25.6 (22.0-30.0) sec Sodium 137 (137-145) mmol/L Potassium 4.8 (3.5-5.1) mmol/L Chloride 106 (98-107) mmol/L Carbon Dioxide 20 L (22-30) mmol/L Anion Gap 11 mmol/L BUN 25 H (9-20) mg/dL Creatinine 1.31 H (0.66-1.25) mg/dL Est GFR (CKD-EPI)AfAm 65 (>60 ml/min/1.73 sqM) Est GFR (CKD-EPI)NonAf 56 (>60 ml/min/1.73 sqM) Glucose 138 H (74-99) mg/dL Calcium 8.8 (8.4-10.2) mg/dL Total Bilirubin 0.8 (0.2-1.3) mg/dL AST 32 (17-59) U/L ALT 37 (4-49) U/L Alkaline Phosphatase 75 (38-126) U/L Total Protein 7.0 (6.3-8.2) g/dL Albumin 3.9 (3.5-5.0) g/dL Disposition Is patient prescribed a controlled substance at d/c from ED?: No Time of Disposition: 16:30 <Gerard Lynn - Last Filed: 02/18/19 16:29> - Out of Hospital Transfer - Req. Specs Out of Hospital Transfer - Requested Specifics: Other Emergency Center <Maurilio Mckeon - Last Filed: 02/18/19 17:36> Clinical Impression: Iliac artery thrombosis Disposition: OTHER INSTITUTION NOT DEFINED Condition: Serious Referrals: Vivian Mcintosh MD [Primary Care Provider] - 1-2 days
[2019-02-18 14:28] LABS: Basophils % (A) 1 %; Eosinophils # (A) 0.1 k/uL (0-0.7); Eosinophils % (A) 1 %; HCT 30.6 % (39.0-53.0); HGB 10.6 gm/dL (13.0-17.5); Lymphocytes # (A) 0.6 k/uL (1.0-4.8); Lymphocytes % (A) 9 %; MCH 30.3 pg (25.0-35.0); MCHC 34.7 g/dL (31.0-37.0); MCV 87.2 fL (80.0-100.0); Mean Platelet Volume 8.1; Monocytes # (A) 0.3 k/uL (0-1.0); Monocytes % (A) 5 %; Neutrophils # (A) 5.9 k/uL (1.3-7.7); Neutrophils % (A) 83 %; Platelet Count 194 k/uL (150-450); RBC 3.51 m/uL (4.30-5.90); RDW 14.2 % (11.5-15.5); WBC 7.1 k/uL (3.8-10.6)
[2019-02-18 14:37] LABS: Albumin 3.9 g/dL (3.5-5.0); Calcium 8.8 mg/dL (8.4-10.2); Potassium 4.8 mmol/L (3.5-5.1); Total Bilirubin 0.8 mg/dL (0.2-1.3)
[2019-02-18] MEDS ORDERED: RX INFO: IV CONTRAST WAS GIVEN 1 EACH MISC MISCELLANE PRN (14:42)
[2019-02-18 15:02] LABS: INR 0.9 (<1.2); Partial Thromboplastin Time 25.6 sec (22.0-30.0)
[2019-02-18] MEDS ORDERED: HEPARIN SODIUM,PORCINE 5,000 UNIT/ML 1 ML VIAL IV PRN (15:26)
[2019-02-18] MEDS ORDERED: HEPARIN SODIUM,PORCINE 10,000 UNIT/ML 1 ML VIAL IV ONE (15:26)
--- NOTE | 2019-02-18 15:27 | CT ---
EXAMINATION TYPE: CT angio abdomen pelvis DATE OF EXAM: 02/18/2019 COMPARISON: 01/22/2019 HISTORY: hip pain and pulse deficit . Recent stent placement left iliac artery aneurysm CONTRAST: CTA thoracic and abdominal aorta with 3-D reconstruction is performed without Oral Contrast and with IV Contrast, patient injected with 100 mL of Isovue 300. Contrast CTA of the abdominal aorta was performed from the lung a bases through the base of the pelvi s. 3-D reconstruction imaging obtained at a separate workstation. CONTRAST CT ABDOMEN AND PELVIS ABDOMINAL AORTA: Distal aortic bypass graft is noted to be in place. There is a right infrarenal abdo shey aortic aneurysm measuring 3.4 cm AP dimension. There is a large right internal iliac artery ane urysm measuring 6.7 x 7.1 cm. There is been interval placement of several stents. Normal-appearing fl ow is noted within the stented right common iliac artery and right external iliac artery aneurysm int o the common femoral artery and SFA has visualized. There has been interval stent placement of left c ommon iliac artery aneurysm however there is thrombosis noted of the left common iliac artery stent c omponents and left external iliac artery. There appears to be reconstitution at the level of the left common femoral artery possibly from the epigastric vessels. LIVER/GB- No significant abnormality is seen. PANCREAS- No significant abnormality is seen. SPLEEN- No significant abnormality is seen. ADRENALS- No significant abnormality is seen. KIDNEYS/BLADDER- No significant abnormality is seen. BOWEL- No Significant abnormality GENITAL ORGANS: No gross abnormality seen. LYMPH NODES- No greater than 1cm abdominal or pelvic lymph nodes areappreciated. OSSEOUS STRUCTURES- No significant abnormality is seen. OTHER- No significant abnormality is seen. IMPRESSION- 1. There has been interval stent placement of left common iliac artery aneurysm however there is thro mbosis noted of the left common iliac artery stent components and left external iliac artery. There a ppears to be reconstitution at the level of the left common femoral artery possibly from the epigastr ic vessels. 2.There is a large right internal iliac artery aneurysm measuring 6.7 x 7.1 cm. There is been interva l placement of several stents. Normal-appearing flow is noted within the stented right common iliac a rtery and right external iliac artery aneurysm into the common femoral artery and SFA has visualized.
[2019-02-18] MEDS ORDERED: HEPARIN SOD,PORK IN 0.45% NACL 25,000 UNIT in 0.45% NACL 1 250ML.BAG IV SCH (15:30)
[2019-02-18] MEDS ORDERED: MORPHINE SULFATE 4 MG/ML SYRINGE IV PRN (16:30)
[2019-02-18] MEDS ORDERED: ONDANSETRON 4 MG/2 ML VIAL IVP PRN (16:30)
[2019-02-18] MEDS ORDERED: NALOXONE 0.4 MG/ML 1 ML VIAL IV PRN (16:30)
[2019-02-18] MEDS ORDERED: SODIUM CHLORIDE 0.9% 1,000 ML IV SCH (16:30)
[2019-02-18 18:09] VITALS: BP 138/78; PULSE 74
[2019-02-18 18:10] VITALS: TEMP 98
[2019-02-19] MEDS ORDERED: PANTOPRAZOLE 40 MG/10 ML VIAL IV SCH (09:00)
== END 2019-02-18 17:50 | disposition short-term general hospital (02) ==
LOC: EC 13:39
DX: I74.5 Embolism and thrombosis of iliac artery (principal); E78.5 Hyperlipidemia, unspecified; I10 Essential (primary) hypertension; I25.2 Old myocardial infarction; G47.30 Sleep apnea, unspecified; M10.9 Gout, unspecified; F41.9 Anxiety disorder, unspecified; Z87.891 Personal history of nicotine dependence; Z91.030 Bee allergy status; Z79.1 Long term (current) use of non-steroidal anti-inflammatories (NSAID); Z79.899 Other long term (current) drug therapy; Z85.828 Personal history of other malignant neoplasm of skin; Z96.642 Presence of left artificial hip joint; Z95.828 Presence of other vascular implants and grafts; Z98.890 Other specified postprocedural states; Z82.49 Family history of ischemic heart disease and other diseases of the circulatory system
CPT/HCPCS: 36415; 80053; 85025; 85610; 85730; 74174; 99285; 96365; 96366; 96376; J1644 ×2; Q9967

== ENCOUNTER 2019-06-24 03:01 | Emergency (ER) | payer MEDICARE ==
[2019-06-24 03:06] VITALS: TEMP 98.3
[2019-06-24 03:38] LABS: Anisocytosis Slight; Basophils % (A) 1 %; Eosinophils # (A) 0.3 k/uL (0-0.7); Eosinophils % (A) 5 %; HCT 29.9 % (39.0-53.0); HGB 9.8 gm/dL (13.0-17.5); Hypochromasia Moderate; Lymphocytes # (A) 1.2 k/uL (1.0-4.8); Lymphocytes % (A) 18 %; MCH 31.4 pg (25.0-35.0); MCHC 32.6 g/dL (31.0-37.0); MCV 96.3 fL (80.0-100.0); Macrocytosis Slight; Mean Platelet Volume 9.9; Monocytes # (A) 0.4 k/uL (0-1.0); Monocytes % (A) 6 %; Neutrophils # (A) 4.6 k/uL (1.3-7.7); Neutrophils % (A) 68 %; Platelet Count 145 k/uL (150-450); RBC 3.11 m/uL (4.30-5.90); RDW 18.4 % (11.5-15.5); WBC 6.8 k/uL (3.8-10.6)
--- NOTE | 2019-06-24 03:44 | ED ---
Abdominal Pain HPI - General Chief Complaint: Abdominal Pain Stated Complaint: ABd Pain Time Seen by Provider: 06/24/19 03:16 Source: patient Mode of arrival: ambulatory Limitations: no limitations - History of Present Illness Initial Comments: This patient is a 69-year-old man who presents to be evaluated for right lower quadrant/right groin pain that came on around 11:30 while he was lying in bed. Patient states that it seemed to be radiating towards the right testicle. He describes the pain as being somewhat intermittent, moderate severity, and he did not note any worsening factors. He states that it seemed to be relieved when he was standing. There were no associated symptoms though he states it did seem like he felt like he had to urinate. He had not noted a change in urination. The patient states that about the time that he arrived here in the department the pain had resolved. He states that he now feels well with no symptoms. MD Complaint: abdominal pain Onset/Timin -: hour(s) Location: RLQ Radiation: other (Right testicle) Migration to: no migration Severity: moderate Quality: sharp Consistency: intermittent Improves With: other (Standing) Worsens With: nothing Associated Symptoms: denies other symptoms - Related Data Home Medications Medication Instructions Recorded Confirmed Atenolol [Tenormin] 25 mg PO DAILY 12/17/18 05/19/19 Ramipril [Altace] 5 mg PO DAILY 12/17/18 05/19/19 Venlafaxine HCl [Effexor XR] 75 mg PO DAILY 12/17/18 05/19/19 Ascorbic Acid [Vitamin C] 500 mg PO DAILY 02/18/19 05/19/19 Flaxseed Oil 1,000 mg PO DAILY 02/18/19 05/19/19 Ibuprofen [Motrin] 600 mg PO Q8HR PRN 02/18/19 05/19/19 Turmeric Root Extract [Turmeric] 500 mg PO DAILY 02/18/19 05/19/19 Ubidecarenone [Co Q-10] 100 mg PO DAILY 02/18/19 05/19/19 Vitamin B Complex 1 cap PO DAILY 02/18/19 05/19/19 Folic Acid 1 mg PO DAILY 05/19/19 05/19/19 Previous Rx's Medication Instructions Recorded Tamsulosin [Flomax] 0.4 mg PO DAILY #14 cap 06/24/19 Allergies Allergy/AdvReac Type Severity Reaction Status Date / Time bee pollen Allergy Anaphylaxis Verified 06/24/19 03:06 Review of Systems ROS Statement: Those systems with pertinent positive or pertinent negative responses have been documented in the HPI. ROS Other: All systems not noted in ROS Statement are negative. Constitutional: Denies: fever, chills Respiratory: Denies: cough, dyspnea Cardiovascular: Denies: chest pain, palpitations, edema Gastrointestinal: Reports: as per HPI, abdominal pain. Denies: nausea, vomiting, diarrhea, constipation Genitourinary: Reports: urgency, testicular pain. Denies: dysuria, frequency, hematuria, discharge, testicular mass Musculoskeletal: Denies: back pain Skin: Denies: rash Neurological: Denies: headache Past Medical History Past Medical History: Cancer, COPD, Hyperlipidemia, Hypertension, Myocardial Infarction ([place]), Sleep Apnea/CPAP/BIPAP Additional Past Medical History / Comment(s): spot right upper lung, hx. skin cancer, uses CPAP, gout Last Myocardial Infarction Date:: 1996 History of Any Multi-Drug Resistant Organisms: None Reported Past Surgical History: Heart Catheterization, Joint Replacement Additional Past Surgical History / Comment(s): AAA repair 2002, & then lysis of adhesions, left hip replaced, vasectomy, B iliac aneurysm repair Past Anesthesia/Blood Transfusion Reactions: No Reported Reaction Past Psychological History: Anxiety, Depression Smoking Status: Former smoker Past Alcohol Use History: Occasional Past Drug Use History: Marijuana - Past Family History Mother Family Medical History: Cancer, Deep Vein Thrombosis (DVT) General Exam Limitations: no limitations General appearance: alert, in no apparent distress Head exam: Present: atraumatic, normocephalic Eye exam: Present: normal appearance. Absent: scleral icterus, conjunctival injection Respiratory exam: Present: normal lung sounds bilaterally. Absent: respiratory distress, wheezes, rales, rhonchi, stridor Cardiovascular Exam: Present: regular rate, normal rhythm, normal heart sounds. Absent: systolic murmur, diastolic murmur, rubs, gallop GI/Abdominal exam: Present: soft, normal bowel sounds. Absent: distended, tenderness, guarding, rebound, rigid, mass, pulsatile mass, hernia exam: Present: normal inspection, circumcision. Absent: testicular tenderness, urethral discharge, scrotal swelling Extremities exam: Present: normal inspection, normal capillary refill. Absent: pedal edema, calf tenderness Back exam: Present: normal inspection. Absent: CVA tenderness (R), CVA tenderness (L) Neurological exam: Present: alert Skin exam: Present: warm, dry, intact, normal color. Absent: rash Course Vital Signs 06/24/19 06/24/19 03:01 04:06 Temperature 98.3 F Pulse Rate 70 60 Respiratory 18 14 Rate Blood Pressure 183/85 138/74 O2 Sat by Pulse 99 100 Oximetry Medical Decision Making - Lab Data Result diagrams: 06/24/19 03:22 06/24/19 03:22 Lab Results 06/24/19 06/24/19 06/24/19 Range/Units 03:22 03:22 03:37 WBC 6.8 (3.8-10.6) k/uL RBC 3.11 L (4.30-5.90) m/uL Hgb 9.8 L (13.0-17.5) gm/dL Hct 29.9 L (39.0-53.0) % MCV 96.3 (80.0-100.0) fL MCH 31.4 (25.0-35.0) pg MCHC 32.6 (31.0-37.0) g/dL RDW 18.4 H (11.5-15.5) % Plt Count 145 L (150-450) k/uL Neutrophils % 68 % Lymphocytes % 18 % Monocytes % 6 % Eosinophils % 5 % Basophils % 1 % Neutrophils # 4.6 (1.3-7.7) k/uL Lymphocytes # 1.2 (1.0-4.8) k/uL Monocytes # 0.4 (0-1.0) k/uL Eosinophils # 0.3 (0-0.7) k/uL Basophils # 0.0 (0-0.2) k/uL Hypochromasia Moderate Anisocytosis Slight Macrocytosis Slight Sodium 139 (137-145) mmol/L Potassium 4.7 (3.5-5.1) mmol/L Chloride 108 H (98-107) mmol/L Carbon Dioxide 23 (22-30) mmol/L Anion Gap 8 mmol/L BUN 34 H (9-20) mg/dL Creatinine 1.41 H (0.66-1.25) mg/dL Est GFR (CKD-EPI)AfAm 59 (>60 ml/min/1.73 sqM) Est GFR (CKD-EPI)NonAf 51 (>60 ml/min/1.73 sqM) Glucose 117 H (74-99) mg/dL Calcium 8.7 (8.4-10.2) mg/dL Total Bilirubin 0.3 (0.2-1.3) mg/dL AST 21 (17-59) U/L ALT 14 (4-49) U/L Alkaline Phosphatase 97 (38-126) U/L Total Protein 7.2 (6.3-8.2) g/dL Albumin 3.9 (3.5-5.0) g/dL Amylase 66 (30-110) U/L Lipase 76 (23-300) U/L Urine Color Light Red Urine Appearance Cloudy (Clear) Urine pH 5.5 (5.0-8.0) Ur Specific [place] 1.018 (1.001-1.035) Urine Protein 1+ H (Negative) Urine Glucose (UA) Negative (Negative) Urine Ketones Negative (Negative) Urine Blood Large H (Negative) Urine Nitrite Negative (Negative) Urine Bilirubin Negative (Negative) Urine Urobilinogen 2.0 (<2.0) mg/dL Ur Leukocyte Esterase Trace H (Negative) Urine RBC >182 H (0-5) /hpf Urine WBC 8 H (0-5) /hpf Ur Squamous Epith Cells <1 (0-4) /hpf Hyaline Casts 4 H (0-2) /lpf Urine Mucus Rare H (None) /hpf Disposition Clinical Impression: Calculus of kidney Disposition: HOME SELF-CARE Condition: Good Prescriptions: Tamsulosin [Flomax] 0.4 mg PO DAILY #14 cap Is patient prescribed a controlled substance at d/c from ED?: No Referrals: Vivian Mcintosh MD [Primary Care Provider] - 1-2 days
[2019-06-24 03:46] LABS: Albumin 3.9 g/dL (3.5-5.0); Calcium 8.7 mg/dL (8.4-10.2); Potassium 4.7 mmol/L (3.5-5.1); Total Bilirubin 0.3 mg/dL (0.2-1.3); Total Protein 7.2 g/dL (6.3-8.2)
[2019-06-24 04:18] LABS: Appearance,Urine Cloudy (Clear); Bilirubin,Urine Negative (Negative); Blood,Urine Large (Negative); Color,Urine Light Red; Glucose,Urine (UA) Negative (Negative); Hyaline Casts,Urine 4 /lpf (0-2); Ketones,Urine Negative (Negative); Leukocyte Esterase,Urine Trace (Negative); Mucus,Urine Rare /hpf; Nitrite,Urine Negative (Negative); PH, Urine 5.5 (5.0-8.0); Protein,Urine 1+ (Negative); RBC,Urine >182 /hpf (0-5); Specific Gravity,Urine 1.018 (1.001-1.035); Squamous Epithelial Cell,Urine <1 /hpf (0-4); WBC,Urine 8 /hpf (0-5)
[2019-06-24 04:58] VITALS: BP 138/74; PULSE 60; RESP 14
--- NOTE | 2019-06-24 05:10 | CT ---
EXAMINATION TYPE: CT abdomen pelvis wo con DATE OF EXAM: 06/24/2019 COMPARISON: 02/18/2019 HISTORY: right flank pain CT DLP: 900.6 mGycm Automated exposure control for dose reduction was used. Images were obtained from the diaphragm to the floor the pelvis with no contrast. There is subpleural reticular interstitial infiltrate in the lung bases bilaterally. There is no pleu ral effusion. There is no pericardial effusion. The stomach is intact. Liver and spleen appear intact . Bile ducts are not dilated. Gallbladder appears normal. There is no evidence of pancreatic mass. Th ere is atherosclerotic vascular calcification. There is aorto iliac endograft. There is large aneurys m of the right common iliac artery. Aneurysm measures 6.2 cm. There is 3 cm aneurysm of the left comm on iliac artery. Bladder distends smoothly. Prostate is mildly enlarged. There is left hip prosthesis . There is femoral to femoral bypass graft noted. There is no mesenteric edema. There is no ascites or free air. There is no sign of a bowel obstructio n. Appendix is medial and appears normal. There is no adrenal mass. There are multiple bilateral renal cortical cysts and the largest is on the left kidney that measures 5 cm. There is mild right-sided hydronephrosis and hydroureter. Distal rig ht ureter is not well seen due to metal artifact and presence of the large aneurysm. No ureteral ston e identified. There is no retroperitoneal adenopathy. There is aneurysm of the lower abdominal aorta that measures up to 3.7 cm. Lumbar vertebra have normal alignment. Disc spaces are fairly normal. There is no compression fractur e. The bony pelvis is intact. IMPRESSION: There is right-sided hydronephrosis and hydroureter. No calculus seen. This could relate to nonopaque stone or recently passed stone. Aorta and iliac artery aneurysms. Aneurysms not significantly different than old exam. The right-sided hydronephrosis is a change compared to old exam. This is consistent with acute obstru ction.
[2019-06-24] MEDS ORDERED: TAMSULOSIN 0.4 MG CAP.ER.24H PO STA (05:18)
[2019-06-24] MEDS ORDERED: HYDROcodone/APAP 5-325MG 1 EACH TAB PO STA (05:35)
== END 2019-06-24 05:40 | disposition home or self-care (01) ==
LOC: EC 03:01
DX: N20.0 Calculus of kidney (principal); I10 Essential (primary) hypertension; I25.2 Old myocardial infarction; F41.9 Anxiety disorder, unspecified; F32.9 Major depressive disorder, single episode, unspecified; G47.30 Sleep apnea, unspecified; Z99.89 Dependence on other enabling machines and devices; Z95.818 Presence of other cardiac implants and grafts; Z85.828 Personal history of other malignant neoplasm of skin; Z86.79 Personal history of other diseases of the circulatory system; Z96.642 Presence of left artificial hip joint; Z87.891 Personal history of nicotine dependence; Z98.890 Other specified postprocedural states; Z79.899 Other long term (current) drug therapy; Z91.048 Other nonmedicinal substance allergy status
CPT/HCPCS: 36415; 74176; 80053; 81001; 82150; 83690; 85025; 99284

== ENCOUNTER → 2019-08-05 | Outpatient (CLI) | payer MEDICARE ==
--- NOTE | 2019-08-07 19:13 | PE ---
EXAMINATION TYPE: PET CT fusion skull to thigh DATE OF EXAM: 08/05/2019 COMPARISON: CT abdomen 06/24/2019 Prior PET/CT: 11/06/2018 HISTORY: Lung cancer TECHNIQUE: Following the intravenous administration of 12.96 mCi of F-18 FDG, whole body images are performed from the skull base to the midthigh. Images are reviewed on the computer in the coronal, a xial, and sagittal planes. Reconstructed rotating images are created on independent workstation and reviewed on the computer. A localization and attenuation correction CT is performed in conjunction with the PET scan. DLP: 504.89 mGycm SCAN: Subsequent Blood glucose: 111 mg/dL Average Mediastinum SUV: 1.07 Average Liver SUV: 1.67 FINDINGS: NECK: No abnormal uptake THORAX: No suspicious uptake to suggest recurrent or metastatic lung cancer. Previous right upper lob e uptake is not evident currently. Prior mass is not identified. Postsurgical changes in the region. ABDOMEN: No abnormal uptake PELVIS: No abnormal uptake OSSEOUS STRUCTURES: No abnormal uptake LOCALIZATION CT: Emphysematous changes are present. No suspicious recurrent masses are evident. There is prior lower abdominal aortic aneurysm repair COMPARISON: Previous mass is not identified. IMPRESSION: 1. No evidence of recurrent or metastatic lung cancer.
== END | disposition home or self-care (01) ==
LOC: RADPETMAIN 14:00
PROVIDERS: ATTEND Internal Medicine Hematology & Oncology
DX: C34.11 Malignant neoplasm of upper lobe, right bronchus or lung (principal)
CPT/HCPCS: 78815; A9552

== ENCOUNTER → 2020-03-03 | Outpatient (CLI) | payer MEDICARE ==
--- NOTE | 2020-03-04 09:43 | PE ---
EXAMINATION TYPE: PET CT fusion skull to thigh DATE OF EXAM: 03/03/2020 COMPARISON: PET CT August 05, 2019 and older studies HISTORY: Right-sided lung cancer diagnosed 2019 completed chemotherapy May 2019. TECHNIQUE: Following the intravenous administration of 12.73 mCi of F-18 FDG, whole body images are performed from the skull base to the midthigh. Images are reviewed on the computer in the coronal, a xial, and sagittal planes. Reconstructed rotating images are created on independent workstation and reviewed on the computer. A noncontrast CT is performed in conjunction with the PET scan. Blood glu cose level equals 98. SCAN: Subsequent Scan FINDINGS: SKULL BASE AND NECK: No new areas of abnormal hypermetabolic uptake. CHEST, MEDIASTINUM, AND HILAR REGION: No new areas of suspicious hypermetabolic uptake. No recurrent for new hypermetabolic nodules. ABDOMEN AND PELVIS: No new areas of suspicious hypermetabolic uptake. Normal excretion. No new adrena l masses. OSSEOUS STRUCTURES: No new areas of abnormal hypermetabolic uptake. OTHER CT: Mild to moderate calcified plaque bilateral carotid bulb. Enlarged main pulmonary artery, C T finding consistent with underlying pulmonary hypertension. Adjacent ascending aorta measures 4.1 cm in diameter axial image 127. Coronary artery calcification is redemonstrated which is noted marker o f underlying coronary artery disease. Liver is diffusely low dense consistent with diffuse fatty infiltration. There is stent graft surgica l change distal abdominal aorta extending into iliac arteries through aneurysm of the iliac arteries bilaterally right larger than left. Metallic hardware from left hip arthroplasty is redemonstrated. Multilevel spurring in the spine. Dis c desiccation and mild to moderate disc space narrowing L5-S1 level. Facet arthropathy mid to lower l umbar spine. IMPRESSION: No suspicious hypermetabolic uptake to suggest active neoplastic recurrence.
== END | disposition home or self-care (01) ==
LOC: RADPETMAIN 08:11
PROVIDERS: ATTEND Internal Medicine Hematology & Oncology
DX: C34.11 Malignant neoplasm of upper lobe, right bronchus or lung (principal)
CPT/HCPCS: 78815; A9552

== ENCOUNTER → 2021-02-20 | Outpatient (CLI) | payer MEDICARE ==
--- NOTE | 2021-02-20 11:05 | CT ---
EXAMINATION TYPE: CT chest w con DATE OF EXAM: 02/20/2021 COMPARISON: 03/03/2020 HISTORY: Lung Cancer CT DLP: 783 mGycm Automated exposure control for dose reduction was used. TECHNIQUE: CT scan of the chest is performed with IV Contrast, patient injected with 100 ml mL of Isovue 300. M IP Images are created on CT scanner and reviewed. 3D reconstructed images are created on an [employer] workstation and reviewed. FINDINGS: LUNGS: There is diffuse emphysematous changes with pleural-based thickening and subcentimeter nodular ity bilaterally. Emphysematous changes are seen. No consolidative pneumonia or pleural effusion. No i nterstitial edema. Interlobular septal thickening can be associated with chronic interstitial lung di sease such as fibrosis. MEDIASTINUM: Atherosclerotic change aorta and coronary arteries. Upper abdominal aorta measures 3.7 c m compatible with aneurysmal dilation. Heart size normal. No pathologic adenopathy. OTHER: Bilateral renal appearing cysts are noted. Hypertrophic and degenerative change of the spine. IMPRESSION: 1. COPD. No evidence of mass or pathologic adenopathy. Subpleural nodularity is too small to characte rize but likely benign. 2. There is an aortic aneurysm involving the upper abdominal aorta measuring 3.8 cm.
== END | disposition home or self-care (01) ==
LOC: RADCTMAIN 09:05
PROVIDERS: ATTEND Internal Medicine Hematology & Oncology
DX: C34.11 Malignant neoplasm of upper lobe, right bronchus or lung (principal); J44.9 Chronic obstructive pulmonary disease, unspecified; I71.4 Abdominal aortic aneurysm, without rupture
CPT/HCPCS: 82565; 84520; 71260; 36415; Q9967

== ENCOUNTER → 2021-04-03 | Outpatient (CLI) | payer MEDICARE ==
--- NOTE | 2021-04-04 06:48 | MR ---
MRI CERVICAL SPINE: CLINICAL HISTORY: History of lung cancer with cervicalgia, neck pain going into right shoulder for 6 months. TECHNIQUE: Multiplanar, multisequence imaging of the cervical spine is performed without IV contrast. COMPARISON: Most recent PET CT March 03, 2020. FINDINGS: Coronal images show dextroconvex scoliosis centered upper to mid thoracic spine. Sagittal i mages of the cervical spine show the craniocervical junction to appear within normal limits. The cer vical and upper thoracic spinal cord is normal in caliber and signal. Generalized AP spinal canal dewayne rowing is present presumed congenital. The vertebral body height are normal. [id number] multi level disc space narrowing C4-C5 through C6-C7 levels. The bone marrow signal intensity is within nor mal limits. Slight grade 1 anterolisthesis C7 on T1 is noted. Axial images at C2-C3 level show uncovertebral facet degenerative changes greater on the left causing [id number] left-sided neural foraminal narrowing. Axial images at C3-C4 level show broad-based left paracentral disc protrusion with uncovertebral face t degenerative changes, there is effacement of the anterior thecal sac and mild bilateral neural fora shey narrowing. Axial images at C4-C5 level shows broad-based central disc protrusion effacing anterior thecal sac wi th uncovertebral facet degenerative changes causing moderate to severe right greater than left bilate ral neural foraminal narrowing. Axial images at C5-C6 level shows broad-based left paracentral disc protrusion and uncovertebral face t degenerative changes, there is effacement of the anterior thecal sac and moderate bilateral neural foraminal narrowing. Axial images at C6-C7 level broad-based left paracentral disc protrusion, there is marginal spurring also present, there is effacement of the anterior thecal sac along with moderate to severe bilateral neural foraminal narrowing. Axial images at C7-T1 level show spondylolisthesis, spinal canal is preserved, bilateral neural cynthia anand are patent. IMPRESSION: Multilevel degenerative changes in the cervical spine as detailed above.
== END | disposition home or self-care (01) ==
LOC: RADMRIMAIN 12:29
PROVIDERS: ATTEND Family Medicine
DX: M50.223 Other cervical disc displacement at C6-C7 level (principal); M43.13 Spondylolisthesis, cervicothoracic region; M47.812 Spondylosis without myelopathy or radiculopathy, cervical region
CPT/HCPCS: 72141

== ENCOUNTER 2021-11-22 13:16 | Emergency (ER) | payer MEDICARE ==
[2021-11-22 14:05] VITALS: BP 152/78; PULSE 71; RESP 20; TEMP 98.1
[2021-11-22 16:37] LABS: Basophils # (A) 0.1 k/uL (0-0.2); Basophils % (A) 1 %; Eosinophils # (A) 0.2 k/uL (0-0.7); Eosinophils % (A) 2 %; HCT 41.4 % (39.0-53.0); HGB 13.9 gm/dL (13.0-17.5); Lymphocytes # (A) 2.1 k/uL (1.0-4.8); Lymphocytes % (A) 22 %; MCH 30.9 pg (25.0-35.0); MCHC 33.5 g/dL (31.0-37.0); MCV 92.3 fL (80.0-100.0); Mean Platelet Volume 7.9; Monocytes # (A) 0.5 k/uL (0-1.0); Monocytes % (A) 6 %; Neutrophils # (A) 6.5 k/uL (1.3-7.7); Neutrophils % (A) 69 %; Platelet Count 172 k/uL (150-450); RBC 4.49 m/uL (4.30-5.90); RDW 13.2 % (11.5-15.5); WBC 9.4 k/uL (3.8-10.6)
[2021-11-22 16:48] LABS: Albumin 3.9 g/dL (3.5-5.0); Calcium 8.4 mg/dL (8.4-10.2); Potassium 4.1 mmol/L (3.5-5.1); Total Bilirubin 0.5 mg/dL (0.2-1.3); Total Protein 6.2 g/dL (6.3-8.2)
[2021-11-22 16:53] LABS: INR 0.9 (<1.2); Partial Thromboplastin Time 24.2 sec (22.0-30.0)
== END 2021-11-22 19:38 | disposition left against medical advice (07) ==
LOC: EC 13:16
DX: Z53.29 Procedure and treatment not carried out because of patient's decision for other reasons (principal)
CPT/HCPCS: 36415; 80053; 85025; 85610; 85730; 99499

== ENCOUNTER → 2021-12-13 | Outpatient (CLI) | payer MEDICARE ==
--- NOTE | 2021-12-13 09:15 | CT ---
EXAMINATION TYPE: CT chest w con DATE OF EXAM: 12/13/2021 COMPARISON: 02/20/2021, 03/03/2020 HISTORY: 71-year-old male R04.2, Hemoptysis. History of right upper lobectomy. History of lung and sk in cancer. TECHNIQUE: Contiguous axial scanning of the chest after the administration of 70ml mL of Isovue 300. Coronal/sagittal reconstructions performed. CT DLP: 585mGycm. Automatic exposure control utilized for a dose reduction. FINDINGS: r heart normal size without pericardial effusion. Three-vessel coronary artery calcifications are pre sent in remarkable for coronary artery disease. Aortic root mildly aneurysmal at 4.1 cm, unchanged. Ascending aorta mildly aneurysmal at 4.0 cm. Héctor tional mild fusiform aneurysm mid descending thoracic aorta up to 3.7 cm. Mild atherosclerotic calcif ications. Conventional arch vessel branching anatomy. There is concerning new/increasing lower right paratracheal soft tissue at the level of the right upp er lobectomy resection margin that measures up to 3.2 x 2.0 cm versus 1.8 x 1.5 cm, previously. Lung windows also show some slight extension of soft tissue along the central bronchovascular bundles of t he right upper lobe, axial image 20. Large caliber to the main right and left pulmonary arteries up to 3.4 cm suggesting underlying pulmon ernie arterial hypertension. New subpleural areas of groundglass density could reflect inflammatory process, for example, right in frahilar region, axial image 30. Peripheral right midlung, axial image 23. There is moderate centrilobular emphysema and a new bilateral pulmonary nodules measuring up to 1.6 c m on the right and 1.1 cm on the left. Suspect underlying fatty infiltration of the liver. Moderate atherosclerotic change visualized abdomi nal aorta. There is partial visualization of a 4.0 cm infrarenal abdominal aortic aneurysm. Redemonst rated are numerous renal cysts measuring up to 2.5 cm. Hilar splenules. Bones: Moderate to advanced degenerative disc disease throughout the thoracic spine. IMPRESSION: 1. Status post right upper lobectomy. There is concerning new/increasing soft tissue measuring 3.2 x 2.0 cm at the staple margin extending into the lower right paratracheal region. 2. Additional few bilateral pulmonary nodules measuring up to 1.5 cm concerning for metastases. 3. Some patchy areas of groundglass density. Correlate to exclude infectious/inflammatory foci includ ing the possibility of atypical pneumonias. 4. Background COPD. CAD with 3 vessel coronary artery calcifications. Stable measurements of aortic a neurysm as above of the 4.1 cm.
== END ==
LOC: RADCTMAIN 06:26
PROVIDERS: ATTEND Internal Medicine Critical Care Medicine
DX: Z85.828 Personal history of other malignant neoplasm of skin (principal); J44.9 Chronic obstructive pulmonary disease, unspecified; Z90.2 Acquired absence of lung [part of]; I25.10 Atherosclerotic heart disease of native coronary artery without angina pectoris; I71.9 Aortic aneurysm of unspecified site, without rupture
CPT/HCPCS: 82565; 84520; 71260; 36415; Q9967

== ENCOUNTER 2021-12-26 12:11 | Day surgery (SDC) | payer MEDICARE ==
[2021-12-25 09:28] VITALS: BMI 27.1
[~2021-12-26 12:11] MED LIST changes: -DEXAMETHASONE SOD PHOSPHATE 10 MG/ML 1 ML VIAL IV ONE; -HYDROmorphone 0.5 MG/0.5 ML SYRINGE IVP PRN; -LIDOCAINE 1% 20 ML VIAL (10MG/ML) FOR IV START INTRADERMA PRN; +LIDOCAINE VISCOUS 300 MG/15 ML CUP MUCOUS MEM ONE; -ONDANSETRON 4 MG/2 ML VIAL IVP ONE; +SODIUM CHLORIDE 0.9% 1,000 ML IV SCH; -fentaNYL (PF) 50 MCG/ML 2 ML AMP IV PRN
[2021-12-26] MEDS ORDERED: hydrALAZINE HCL 20 MG/ML 1 ML VIAL IV ONE ×2 (13:05)
[2021-12-26] MEDS ORDERED: LACTATED RINGERS 1,000 ML IV ONE ×2 (13:10→16:08)
[2021-12-26] MEDS ORDERED: MIDAZOLAM 2 MG/2 ML VIAL IV ONE (13:15)
[2021-12-26] MEDS ORDERED: PROPOFOL 10 MG/ML 20 ML VIAL IV ONE (15:13)
[2021-12-26] MEDS ORDERED: NEOSTIGMINE 1 MG/ML 10 ML VIAL ONE (15:13)
[2021-12-26] MEDS ORDERED: fentaNYL (PF) 50 MCG/ML 2 ML AMP ONE (15:13)
[2021-12-26] MEDS ORDERED: SUCCINYLCHOLINE CHLORIDE 200 MG/10 ML VIAL IV ONE (15:13)
[2021-12-26] MEDS ORDERED: ROCURONIUM 10 MG/ML (5 ML VIAL) IV ONE (15:13)
[2021-12-26] MEDS ORDERED: LIDOCAINE 2% INJ 20 MG/ML (2 ML VIAL) ONE (15:13)
[2021-12-26] MEDS ORDERED: GLYCOPYRROLATE 0.2 MG/ML 2 ML VIAL ONE (15:13)
--- NOTE | 2021-12-26 16:07 | P.PCN ---
Date of Procedure: 12/26/21 Preoperative Diagnosis: Hemoptysis Postoperative Diagnosis: Endobronchial irregularity along the lateral tracheal wall, causing endobronchial bleeding Normal right upper lobe stump Bloody secretions within the airways originating from the distal right lateral tracheal wall Procedure(s) Performed: Flexible bronchoscopy Endobronchial brushing of the right lateral tracheal wall lavage of the right lateral tracheal wall Endobronchial ultrasound Transbronchial needle aspirate of a right paratracheal lymph node station 4R Anesthesia: NEHA Surgeon: Robel Matthews Estimated Blood Loss (ml): 5 Pathology: none sent Condition: stable Disposition: same day Operative Findings: This is a procedure that was done in the endoscopy suite for ongoing hemoptysis. The patient has history of adenocarcinoma of the lung stage III and he has undergone previous robotic-assisted right upper lobe resection. His postsurgical staging with the PRESTON. The patient had T2 N2 M0 disease and his surgery was done on November 2018. He completed 3 cycles of carboplatinum and Alimta. I receiving radiation therapy. He did not receive any immunotherapy. Last CAT scan of the chest that was done on 12/06/2021 showed evidence of tumor recurrence with right paratracheal soft tissue density/lymph enlarged in size measuring 2.2 cm. This procedure was done under general anesthesia. The intubation process was done by anesthesia. The intubation was done without any major complications. An upper airway inspection was done prior to intubation and this included examination of the posterior pharynx, larynx, epiglottis and vocal cords and all of the upper airway structures were within normal limits. Following that, the patient was intubated. The ET tube was secured. The flexible bronchoscope was introduced and airway inspection was done. The main trachea was within normal. The distal trachea showed some endobronchial irregularities and mass effect along the night. The surface was irregular lateral wall. The surface was irregular and friable and this was thought to be the cause of or the source of the bleeding. The ana maria was slightly distorted. The right upper lobe stump was easily identified. It was healthy and within normal limits. Examination of the bronchus intermedius and right middle lobe and the right lower lobe showed some limited scant bloody secretions that were suctioned out. After suctioning the bloody secretions, it was clear to me that the source of the bleed was right lateral tracheal wall that was losing and very minimal amounts. This was an episodic bleed. Examination of the left side included left mainstem bronchus, left upper lobe and left lower lobe bronchus and the various segments were all patent and within normal limits. At this point, endobronchial brushing and lavage of the right lateral taken wall irregularities was done without any complications. The bronchoscope was removed. The endobronchial ultrasound was inserted in the right paratracheal lymph node was identified along the right lateral tracheal wall, station 4R location. The lymph node was approximately 2.2 cm and was quite irregular. Transbronchial needle aspirate using 22-gauge core needle was used to obtain biopsies of the station 4 lymph node. A total of 6 passes was done. Rapid onset evaluation was done and the biopsy was alert and was adequate. The subcarinal area showed very tiny lymph nodes measuring less than 5 mm in size. Rest of the mediastinal lymph node stations showed no significant lymphadenopathy. After completing the transbronchial needle aspirate, the EBUS bronchoscope was removed and flexible bronchoscope was inserted through offered this patient after vigorous suctioning. No evidence of any acute bleeding was identified. Bronchus was removed. The patient was extubated and transferred to recovery in a stable condition. We are going to recommend to stop any form of a nonsteroidal anti-inflammatory medications. No antiplatelet agent. Pending further biopsy results.
[2021-12-26 16:17] VITALS: RESP 18; TEMP 97
[2021-12-26 17:11] VITALS: BP 161/80; PULSE 58
[2021-12-26 23:38] LABS: Appearance,BF Blood Tinged
== END 2021-12-26 17:39 | disposition home or self-care (01) ==
LOC: ORWHC2ENDO 12:11
PROVIDERS: ATTEND Internal Medicine Critical Care Medicine
DX: R91.1 Solitary pulmonary nodule (principal)
CPT/HCPCS: 87798 ×3; 87496; 87498; 87529; 88104; 88108; 88305; 88173; 89050; 87252; 87502; 87634; 87070; 87205; 87116; 87102; 87206; 31623; 31624; 31652; J2250; J0330; J0360; J2710; J3010; J2704; J2001

== ENCOUNTER → 2022-01-01 | Outpatient (CLI) | payer MEDICARE ==
--- NOTE | 2022-01-01 11:46 | MR ---
EXAMINATION TYPE: MR brain wo/w con DATE OF EXAM: 01/01/2022 COMPARISON: NONE HISTORY: LUNG CANCER TECHNIQUE: Multiplanar, multisequence images of the brain and brainstem is performed without and with IV contras t, utilizing 9 mL intravenous Gadavist . FINDINGS: Diffusion weighted images demonstrate no evidence of a recent infarct or other diffusion ab normality. There is no extra-axial fluid collection or significant white matter signal abnormality. The ventricular system and cisternal spaces are normal in size and appearance. The brain volume is age appropriate. Midline structures demonstrate normal morphology. The craniocervical junction appears within normal limits. Post contrast images demonstrate no abnormal enhancement. The dural venous sinuses appear pa tent. The visualized sinuses are clear and the globes are intact. IMPRESSION: No suspicious enhancing masses to suggest metastatic disease to the brain.
== END | disposition home or self-care (01) ==
LOC: RADMRIMAIN 10:27
PROVIDERS: ATTEND Internal Medicine Hematology & Oncology
DX: C34.11 Malignant neoplasm of upper lobe, right bronchus or lung (principal)
CPT/HCPCS: 70553; A9585

== ENCOUNTER → 2022-01-03 | Outpatient (CLI) | payer MEDICARE ==
--- NOTE | 2022-01-04 11:36 | PE ---
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 Images are reviewed on the computer in the coronal, axial, and sagittal planes. Reconstructed rotating images are created on independent workstation and reviewed on the computer. A non-contrast CT is performed in conjunction with the PET scan. Glucose level 91 mg/dL COMPARISON: CT 12/13/2021, PET/CT 03/03/2020, FINDINGS: Mediastinal SUV mean is 1.3. Hepatic parenchyma SUV mean is 1.9 SKULL BASE AND NECK: Right supraclavicular ill-defined soft tissue with increased metabolic activity max SUV 4.0 previousl y 2.4 CHEST, MEDIASTINUM, AND HILAR REGION: * Right low paratracheal lymph node with increased FDG activity measuring 1.1 cm, previously 0.8 cm and max SUV 5.9 previously, previously 2.4. * Right pulmonary hilum tissue/lymph node measuring 2.6 x 1.9 cm appears larger but without increase d FDG activity. * Right lower lobe pulmonary nodule remains without FDG activity measuring 14 x 8 mm. * New superior segment left lower lobe 10 mm nodule with max SUV 1.7. * Increase in size of right upper lobe spiculated apical nodule measuring 6 mm, previously 4 mm. * Small focus of FDG activity near the esophagus versus medially in the right lower lobe max SUV 2.9 , not definitely seen on prior could represent a pulmonary nodule measuring 9 mm. ABDOMEN AND PELVIS: No suspicious FDG activity. Misregistration artifact seen projecting over the aquiles er. OSSEOUS STRUCTURES: No suspicious FDG activity. OTHER CT: Atherosclerosis of the arterial vasculature including the coronary arteries. Bilateral caroline l cysts. Left nonobstructing cyst versus vascular calcification. There is distal aortic and bilateral common iliac stent grafts present. Left hip arthroplasty is present with hardware in appropriate pos ition. Multilevel disc degeneration changes are seen throughout the spine. IMPRESSION: Progression of disease with enlarging right low paratracheal lymph nodes with increased metabolic act ivity along with scattered pulmonary nodules and right supraclavicular ill-defined soft tissue at FDG activity.
== END | disposition home or self-care (01) ==
LOC: RADPETMAIN 07:55
PROVIDERS: ATTEND Internal Medicine Hematology & Oncology
DX: C34.11 Malignant neoplasm of upper lobe, right bronchus or lung (principal)
CPT/HCPCS: 78815; A9552